=== PATIENT | female | born 1975 | race Caucasian/White ===

== ENCOUNTER 2017-02-26 17:55 | Emergency (ER) | payer SELFPAY ==
[~2017-02-26] VITALS: Ht 162.6 cm; Wt 70.3 kg
[2017-02-26] MEDS ORDERED: KLONOPIN1 MG ORAL (18:11)
[2017-02-26] MEDS ORDERED: NORCO 10-325 T1 EACH ORAL (18:11)
[2017-02-26 18:15] VITALS: BP 122/80
[2017-02-26] MEDS ORDERED: NORCO 5-325 TA1 EACH ORAL (18:37)
[2017-02-26] MEDS ORDERED: Norco 5mg/325mg tab ORAL ONE (18:45)
[2017-02-26 18:49] VITALS: BP 122/78
--- NOTE | 2017-02-26 21:01 | Emergency Room Report ---
History of Present Illness General Chief Complaint: Back Pain-No Injury Source: Patient Present Illness HPI 42-year-old female presents ED for evaluation. Patient states she is here for medication refill. Patient states she ran out of her pain medications. Has history of back pain. Denies any recent trauma. Pain is a 10 out of 10, throbbing, nonradiating. Denies any leg or motor weakness. Denies any bowel or bladder incontinence. No other aggravating relieving factors. Denies any other associated symptoms Allergies: Coded Allergies: CODEINE (Unverified Allergy, Severe, Hives, 06/20/14) IBUPROFEN (Unverified Adverse Reaction, Intermediate, Anaphylaxis, ) Patient History Past Medical History: psych hx Past Surgical History: none Pertinent Family History: none Social History: Denies: alcohol use, drug use, smoking Last Menstrual Period: One week ago Now: No Immunizations: UTD Reviewed Nursing Documentation: PMH: Agreed, PSxH: Agreed Nursing Documentation-PMH History Of Psychiatric Problem: Yes - Anxiety Review of Systems All Other Systems: negative except mentioned in HPI Physical Exam Vital Signs Date Time Temp Pulse Resp B/P Pulse Ox O2 Delivery O2 Flow Rate FiO2 02/26/17 18:07 98.4 106 18 122/80 98 Room Air Sp02 EP Interpretation: reviewed, normal General Appearance: no apparent distress, alert, GCS 15, non-toxic Head: normocephalic, atraumatic Eyes: bilateral eye PERRL, bilateral eye normal inspection ENT: hearing grossly normal, normal pharynx, no angioedema, normal voice Neck: full range of motion, supple/symm/no masses Respiratory: chest non-tender, lungs clear, normal breath sounds, speaking full sentences Cardiovascular #1: regular rate, rhythm, no edema Cardiovascular #2: 2+ carotid (R), 2+ carotid (L), 2+ radial (R), 2+ radial (L) , 2+ dorsalis pedis (R), 2+ dorsalis pedis (L) Gastrointestinal: normal bowel sounds, non tender, soft, non-distended, no guarding, no rebound Rectal: deferred Genitourinary: normal inspection, no CVA tenderness Musculoskeletal: back normal, gait/station normal, normal range of motion, non- tender Neurologic: alert, oriented x3, responsive, motor strength/tone normal, sensory intact, speech normal Psychiatric: judgement/insight normal, memory normal, mood/affect normal, no suicidal/homicidal ideation Reflexes: 3+ bicep (R), 3+ bicep (L), 3+ tricep (R), 3+ tricep (L), 3+ knee (R) , 3+ knee (L) Skin: normal color, no rash, warm/dry, well hydrated Lymphatic: no adenopathy Medical Decision Making Diagnostic Impression: Primary Impression: Chronic pain Qualified Codes: G89.29 - Other chronic pain ER Course Hospital Course 42-year-old female presents ED complaining of lower back pain. No evidence of trauma Differential diagnoses include: pyelonephritis, kidney stone, muscle strain, Lspine fracture Clinical course Patient placed on stretcher. After initial history and physical I ordered [place] for pain. Upon reassessment patient states pain has improved. I reviewed [facility] and patient has no recent prescriptions filled. However patient does have history of opioid abuse. I agreed to provide her with 3 day supply of medication Diagnosis - chronic pain Stable and discharged to home with prescription for [place]. Followup with PMD. Return to ED if symptoms recur or worsen Last Vital Signs Date Time Temp Pulse Resp B/P Pulse Ox O2 Delivery O2 Flow Rate FiO2 02/26/17 18:51 98.4 02/26/17 18:49 98 18 122/78 98 Room Air Status: improved Disposition: HOME, SELF-CARE Condition: Stable Scripts Hydrocodone Bit/Acetaminophen 5-325* (NORCO 5-325*) 1 Each Tablet 1 TAB ORAL Q6H Y for For Pain, #10 TAB 0 Refills Prov: MATILDE REYES M.D. 02/26/17 Referrals: NON PHYSICIAN (PCP) Patient Instructions: Back Pain, Adult MATILDE REYES M.D. Feb 26, 2017 21:01
== END 2017-02-26 19:20 | disposition home or self-care (01) ==
LOC: EMR 19:06
DX: G89.29 Other chronic pain (principal); Z76.0 Encounter for issue of repeat prescription; F41.9 Anxiety disorder, unspecified; M54.5 Low back pain; Z88.6 Allergy status to analgesic agent
CPT/HCPCS: 99283

== ENCOUNTER 2017-08-21 05:34 | Emergency (ER) | payer MEDICAID ==
[~2017-08-21] VITALS: Ht 162.6 cm; Wt 62.1 kg
[~2017-08-21 05:34] MED LIST: KLONOPIN1 MG ORAL; NORCO 10-325 T1 EACH ORAL; NORCO 5-325 TA1 EACH ORAL
[2017-08-21 05:45] VITALS: BP 122/83
[2017-08-21] MEDS ORDERED: DOXYCYCLINE MO100 MG ORAL (06:08)
[2017-08-21] MEDS ORDERED: KEFLEX500 MG ORAL (06:08)
[2017-08-21] MEDS ORDERED: TYLENOL EXTRA500 MG ORAL (06:09)
--- NOTE | 2017-08-21 06:10 | Emergency Room Report ---
History of Present Illness General Chief Complaint: Edema Source: Patient Present Illness HPI 42-year-old female no significant past medical history presenting with right ankle swelling for 2 days. Patient states that she has been walking a lot, trying to lose weight, suddenly noticed that her right ankle with swollen. Also with redness. Complaining of pain to the ankle. Difficulty ambulating on right foot. Denies any fall or trauma. No fever no chills. No nausea vomiting. no hx of dvt/pe Allergies: Coded Allergies: CODEINE (Unverified Allergy, Severe, Hives, 06/20/14) IBUPROFEN (Unverified Adverse Reaction, Intermediate, Anaphylaxis, ) Patient History Past Medical History: see triage record Past Surgical History: none Pertinent Family History: none Last Menstrual Period: 1 WEEK AGO Reviewed Nursing Documentation: PMH: Agreed, PSxH: Agreed Review of Systems All Other Systems: negative except mentioned in HPI Physical Exam Vital Signs Date Time Temp Pulse Resp B/P (MAP) Pulse Ox O2 Delivery O2 Flow Rate FiO2 08/21/17 05:37 97.2 98 16 122/83 100 Room Air Sp02 EP Interpretation: reviewed, normal General Appearance: normal inspection, well appearing, no apparent distress, alert, GCS 15, non-toxic Head: normocephalic, atraumatic Eyes: bilateral eye normal inspection, bilateral eye PERRL, bilateral eye EOMI ENT: normal ENT inspection, normal pharynx, normal voice, moist mucus membranes Neck: normal inspection, full range of motion, supple Respiratory: normal inspection, lungs clear, normal breath sounds, no respiratory distress, no retraction, no wheezing, speaking full sentences, chest symmetrical Cardiovascular #1: normal inspection, regular rate, rhythm, normal capillary refill Cardiovascular #2: 2+ radial (R), 2+ radial (L) Gastrointestinal: normal inspection, non tender, soft, non-distended, no guarding Musculoskeletal: other - Right ankle/distal tib-fib, edema, mild erythema, tender to palpation, limited range of motion of dorsi or plantar flexion of foot secondary to pain, slightly warm to touch, no crepitus, no calf tenderness or swelling Neurologic: normal inspection, alert, oriented x3, responsive, motor strength/ tone normal, sensory intact, speech normal Psychiatric: normal inspection, judgement/insight normal, memory normal Skin: normal inspection, normal color, no rash, warm/dry, well hydrated, normal turgor Medical Decision Making Diagnostic Impression: Primary Impression: Ankle swelling Additional Impression: Cellulitis ER Course 42-year-old female with right ankle swelling and pain DDX: Sprain/strain vs. fracture versus cellulitis versus inflammatory arthritis/gout Plan: Pain control XR ER course: ROSA bandage applied. XR neg pt still able to ambulate Disposition: Patient is to be discharged home with tylenol and a prescription for keflex/doxy Patient educated to rest, ice, and elevate extremity and to avoid vigorous activity. Strict precautions discussed with patient on when to return to the emergency room including increased redness/rapid spread of rash, increased pain/swelling of extremity, fever or chills, which could indicate severe illness. Otherwise, patient is instructed to followup with her primary care doctor or come back to the emergency room for wound recheck in 2-3 days Please note that this Emergency Department Report was dictated using [employer] technology software, occasionally this can lead to erroneous entry secondary to interpretation by the dictation equipment. Last Vital Signs Date Time Temp Pulse Resp B/P (MAP) Pulse Ox O2 Delivery O2 Flow Rate FiO2 08/21/17 05:45 97.2 98 16 122/83 100 Room Air Disposition: HOME, SELF-CARE Condition: Improved Scripts Acetaminophen* (TYLENOL EXTRA STRENGTH*) 500 Mg Tablet 500 MG ORAL Q8H Y for Prn Headache/Temp > 101, #30 TAB 0 Refills Prov: Tim Reyes M.D. 08/21/17 Doxycycline Monohydrate* (DOXYCYCLINE MONOHYDRATE*) 100 Mg Capsule 100 MG ORAL Q12H for 7 Days, #14 CAP 0 Refills Prov: Tmi Reyes M.D. 08/21/17 Cephalexin* (KEFLEX*) 500 Mg Capsule 500 MG ORAL Q6H, #28 CAP 0 Refills Prov: Tim Reyes.[email or web address] 08/21/17 Referrals: NOT CHOSEN [facility]/,REFERRING (PCP) Patient Instructions: Ankle Pain, Cellulitis Tim Reyes M.D. Aug 21, 2017 06:10
[2017-08-21 06:25] VITALS: BP 118/78
--- NOTE | 2017-08-21 10:09 | Diagnostic Imaging Report ---
Indication: Reason For Exam: PAIN Technique: 3 views of the right ankle Comparison: none Findings: No acute fractures. No dislocations. The joint spaces are preserved. There is an old screw hole in the distal fibula Impression: No acute bony trauma
== END 2017-08-21 06:25 | disposition home or self-care (01) ==
LOC: EMR 05:52
DX: M79.89 Other specified soft tissue disorders (principal); L03.115 Cellulitis of right lower limb; Z88.5 Allergy status to narcotic agent; Z88.6 Allergy status to analgesic agent
CPT/HCPCS: 99283

== ENCOUNTER 2017-12-07 14:50 | Emergency (ER) | payer MEDICAID, OTHER ==
[~2017-12-07] VITALS: Ht 160 cm; Wt 59.0 kg
[~2017-12-07 14:50] MED LIST changes: +DOXYCYCLINE MO100 MG ORAL; +KEFLEX500 MG ORAL; +TYLENOL EXTRA500 MG ORAL
[2017-12-07 14:57] VITALS: BP 111/66
[2017-12-07] MEDS ORDERED: LIDOCAINE700 M1 TP (15:18)
[2017-12-07 15:22] VITALS: BP 111/66
--- NOTE | 2017-12-07 15:23 | Emergency Room Report ---
History of Present Illness General Chief Complaint: Back Pain-No Injury Present Illness HPI Patient is a 42-year-old female who presented after continued low back pain. The patient states that she's been having pain to her low back for many years. Patient reports having multiple allergies to medications. Patient states that she had not been able to see her own primary care physician and had run out of her medications which include [place] and [place]. Patient presented for med refill.Patient denies any acute injury or change in symptomatology. Patient states that she has prior history of arthritis. Allergies: Coded Allergies: CODEINE (Unverified Allergy, Severe, Hives, 06/20/14) TRAMADOL (Verified Allergy, Unknown, 12/07/17) IBUPROFEN (Unverified Adverse Reaction, Intermediate, Anaphylaxis, ) Patient History Past Medical History: see triage record Reviewed Nursing Documentation: PMH: Agreed; PSxH: Agreed Review of Systems All Other Systems: negative except mentioned in HPI Physical Exam Vital Signs Date Time Temp Pulse Resp B/P (MAP) Pulse Ox O2 Delivery O2 Flow Rate FiO2 12/07/17 14:53 97.8 85 20 111/66 99 Room Air 97.9 General Appearance: well appearing, no apparent distress, alert, GCS 15 Head: normocephalic, atraumatic ENT: hearing grossly normal, normal voice Neck: full range of motion, supple Respiratory: chest non-tender, lungs clear, normal breath sounds, no respiratory distress, speaking full sentences Cardiovascular #1: normal peripheral pulses, regular rate, rhythm, no edema, no gallop Gastrointestinal: normal inspection, normal bowel sounds, non tender, soft Musculoskeletal: no calf tenderness Neurologic: normal gait Psychiatric: mood/affect normal Skin: no rash Medical Decision Making Diagnostic Impression: Primary Impression: Chronic pain ER Course Patient presented for back pain. Differential diagnosis included but was not limited to herniated disc, cauda equina syndrome, abdominal aortic aneurysm, perforated ulcer, spinal epidural abscess, spinal stenosis, lumbar fracture, metastatic lesion, pyelonephritis. The patient appears to have chronic pain. There does not appear to be any acute change. The patient was advised that she would not be given refills of narcotic pain medication and that she would need to seek primary care for this. The patient was advised that long-term use of narcotics would not be advisable given her chronic pain issue. Patient is advised to return if any worsening condition or if any changes in status that are concerning. This report is dictated with [employer] associate professor of physics software which may occasionally lead to discrepancies related to use of this software. Last Vital Signs Date Time Temp Pulse Resp B/P (MAP) Pulse Ox O2 Delivery O2 Flow Rate FiO2 12/07/17 14:57 97.9 80 20 111/66 99 Room Air 97.9 Status: unchanged Disposition: HOME, SELF-CARE Condition: Stable Scripts Lidocaine (Lidocaine) 1 Each Adh..patch 700 MG TP DAILY, #30 PATCH Prov: Etienne Sargent MD 12/07/17 Patient Instructions: Back Pain, Adult Etienne Sargent MD December 07, 2017 15:23
== END 2017-12-07 15:29 | disposition home or self-care (01) ==
LOC: EMR 15:17
DX: M54.5 Low back pain (principal); G89.29 Other chronic pain; Z88.5 Allergy status to narcotic agent; Z88.6 Allergy status to analgesic agent
CPT/HCPCS: 99283

== ENCOUNTER 2018-03-22 21:56 | Emergency (ER) | payer MEDICAID ==
[~2018-03-22] VITALS: Ht 162.6 cm; Wt 60.8 kg
[~2018-03-22 21:56] MED LIST changes: +LIDOCAINE700 M1 TP
[2018-03-22 22:00] VITALS: BP 124/81
--- NOTE | 2018-03-22 22:30 | Emergency Room Report ---
History of Present Illness General Chief Complaint: General Complaint Source: Patient, Medical Record Present Illness HPI Is a 43-year-old female with a history of anxiety. She also has history chronic pain. Initially she presents with chief complaint of feet pain. She said she been walking a lot. She has a blister to the right side of the foot. Here she also complaining of anxiety and the Ativan. She has not been on it for a couple months. Denies any trauma. No fever chills but no nausea no vomiting. Pain is 10 out of 10. No suicidal thought homicidal thought. Allergies: Coded Allergies: CODEINE (Unverified Allergy, Severe, Hives, 06/20/14) TRAMADOL (Verified Allergy, Unknown, 12/07/17) IBUPROFEN (Unverified Adverse Reaction, Intermediate, Anaphylaxis, ) Patient History Past Medical History: see triage record, old chart reviewed, psych hx Past Surgical History: none Pertinent Family History: none Social History: Reports: smoking Last Menstrual Period: 1 week ago Now: No Immunizations: other Reviewed Nursing Documentation: PMH: Agreed; PSxH: Agreed Review of Systems Eye: Denies: eye pain, blurred vision ENT: Denies: ear pain, nose congestion, throat swelling Respiratory: Denies: cough, shortness of breath Cardiovascular: Denies: chest pain, palpitations Gastrointestinal: Denies: abdominal pain, diarrhea, nausea, vomiting Musculoskeletal: Reports: muscle pain; Denies: back pain, joint pain Skin: Denies: rash Neurological: Denies: headache, numbness Endocrine: Denies: increased thirst, increased urine Hematologic/Lymphatic: Denies: easy bruising All Other Systems: negative except mentioned in HPI Physical Exam Vital Signs Date Time Temp Pulse Resp B/P (MAP) Pulse Ox O2 Delivery O2 Flow Rate FiO2 03/22/18 22:00 98.6 110 16 124/81 95 Room Air 98.6 vitals with tachycardia Sp02 EP Interpretation: reviewed, normal General Appearance: well appearing, no apparent distress, alert Head: normocephalic, atraumatic Eyes: bilateral eye PERRL, bilateral eye EOMI ENT: hearing grossly normal, normal pharynx Neck: full range of motion, supple, no meningismus Respiratory: chest non-tender, lungs clear, normal breath sounds Cardiovascular #1: regular rate, rhythm - Heart rate 90, no murmur Gastrointestinal: normal bowel sounds, non tender, no mass, no organomegaly, no bruit, non-distended Musculoskeletal: back normal, gait/station normal, normal range of motion, other - 1 cm skin abrasion to the lateral aspect of the right foot. No infection. Neurologic: alert, oriented x3 Psychiatric: mood/affect normal Skin: warm/dry Medical Decision Making Diagnostic Impression: Primary Impression: Chronic pain Qualified Codes: G89.4 - Chronic pain syndrome Additional Impressions: Anxiety Pain in both feet ER Course Patient presents with pain to her feet and chronic pain. She is allergic to ibuprofen. We'll put her on Tylenol. No evidence of any trauma. She is resting comfortably asking for food and drink area I see no evidence of anxiety. We'll discharge home. On the [employer] system she had recent prescription for hydrocodone in February. No recent prescription for Ativan. We' ll discharge home. Last Vital Signs Date Time Temp Pulse Resp B/P (MAP) Pulse Ox O2 Delivery O2 Flow Rate FiO2 03/22/18 22:00 98.6 110 16 124/81 95 Room Air 98.6 Status: unchanged Disposition: HOME, SELF-CARE Condition: Stable Additional Instructions: Follow-up with your doctor in 7 days. May take Tylenol for pain. Return if symptom worsen. ELEN MCNAMARA M.D. Mar 22, 2018 22:30
== END 2018-03-22 22:35 | disposition home or self-care (01) ==
LOC: EMR 22:15
DX: M79.672 Pain in left foot (principal); M79.671 Pain in right foot; G89.4 Chronic pain syndrome; F41.9 Anxiety disorder, unspecified; F17.200 Nicotine dependence, unspecified, uncomplicated; Z88.8 Allergy status to other drugs, medicaments and biological substances; Z88.5 Allergy status to narcotic agent; Z88.6 Allergy status to analgesic agent
CPT/HCPCS: 99282

== ENCOUNTER 2018-07-06 01:07 | Emergency (ER) | payer MEDICAID, OTHER ==
[~2018-07-06] VITALS: Ht 162.6 cm; Wt 59.0 kg
[2018-07-06] MEDS ORDERED: ATIVAN4 MG/1 ML IJ (01:30)
[2018-07-06] MEDS ORDERED: NORCO 5-325 TA1 EACH ORAL (01:30)
[2018-07-06 01:33] VITALS: BP 118/82
[2018-07-06] MEDS ORDERED: Acetaminophen 500mg (ES) tab ORAL ONE (01:45)
[2018-07-06] MEDS ORDERED: ATIVAN1 MG ORAL (01:47)
[2018-07-06] MEDS ORDERED: TYLENOL EXTRA500 MG ORAL (01:47)
[2018-07-06 01:58] VITALS: BP 114/81
--- NOTE | 2018-07-06 05:20 | Emergency Room Report ---
History of Present Illness General Chief Complaint: Pain Source: Patient Present Illness HPI 43-year-old female presents ED for evaluation. Patient walked in stating that she is having pain in her feet pain in her back and neck. Denies any recent injury. States she's had this pain for many years now. Throbbing, 10 out of 10 , nonradiating. States she also feels very anxious. Takes Ativan. Denies SI or HI. Denies hearing voices. No other aggravating relieving factors. Denies any other associated symptoms Allergies: Coded Allergies: CODEINE (Unverified Allergy, Severe, Hives, 06/20/14) TRAMADOL (Verified Allergy, Unknown, 12/07/17) IBUPROFEN (Unverified Adverse Reaction, Intermediate, Anaphylaxis, ) Patient History Past Medical History: none Past Surgical History: none Pertinent Family History: none Social History: Denies: smoking, alcohol use, drug use Now: No Immunizations: UTD Reviewed Nursing Documentation: PMH: Agreed; PSxH: Agreed Nursing Documentation-PMH Past Medical History: No Stated History Review of Systems All Other Systems: negative except mentioned in HPI Physical Exam Vital Signs Date Time Temp Pulse Resp B/P (MAP) Pulse Ox O2 Delivery O2 Flow Rate FiO2 07/06/18 01:19 97.2 76 18 117/80 99 Room Air Sp02 EP Interpretation: reviewed, normal General Appearance: no apparent distress, alert, GCS 15, non-toxic Head: normocephalic, atraumatic Eyes: bilateral eye normal inspection, bilateral eye PERRL ENT: hearing grossly normal, normal pharynx, no angioedema, normal voice Neck: full range of motion, no bony tend, supple/symm/no masses, tender lateral Respiratory: chest non-tender, lungs clear, normal breath sounds, speaking full sentences Cardiovascular #1: regular rate, rhythm, no edema Cardiovascular #2: 2+ carotid (R), 2+ carotid (L), 2+ radial (R), 2+ radial (L) , 2+ dorsalis pedis (R), 2+ dorsalis pedis (L) Gastrointestinal: normal bowel sounds, non tender, soft, non-distended, no guarding, no rebound Rectal: deferred Genitourinary: normal inspection, no CVA tenderness Musculoskeletal: back normal, gait/station normal, normal range of motion, tender - paraspinal lumbar tenderness Neurologic: alert, oriented x3, responsive, motor strength/tone normal, sensory intact, speech normal Psychiatric: judgement/insight normal, memory normal, mood/affect normal, no suicidal/homicidal ideation Reflexes: 3+ bicep (R), 3+ bicep (L), 3+ tricep (R), 3+ tricep (L), 3+ knee (R) , 3+ knee (L) Skin: normal color, no rash, warm/dry, well hydrated Lymphatic: no adenopathy Medical Decision Making Diagnostic Impression: Primary Impression: Anxiety Additional Impression: Chronic pain Qualified Codes: G89.29 - Other chronic pain ER Course Hospital Course 43-year-old female presents ED complaining of bilateral foot pain, neck and back pain. no trauma Differential diagnoses include: pyelonephritis, kidney stone, muscle strain, Lspine fracture Clinical course Patient placed on stretcher. After initial history and physical I ordered tylenol for pain. I reviewed EMR. Patient has been here multiple times for similar presentation. Upon reassessment patient states pain has improved. Patient is safe for discharge or close outpatient follow-up. Agreed to provide her with 3 day supply of Ativan Diagnosis - anxiety, chronic pain Stable and discharged to home with prescription for ativan. Followup with PMD. Return to ED if symptoms recur or worsen Last Vital Signs Date Time Temp Pulse Resp B/P (MAP) Pulse Ox O2 Delivery O2 Flow Rate FiO2 07/06/18 02:13 97.1 07/06/18 01:58 76 18 114/81 99 Room Air Status: improved Disposition: HOME, SELF-CARE Condition: Stable Scripts Lorazepam* (ATIVAN*) 1 Mg Tablet 1 MG ORAL THREE TIMES A DAY for 3 Days, TAB Prov: Jimmie Zambrano MD 07/06/18 Acetaminophen* (TYLENOL EXTRA STRENGTH*) 500 Mg Tablet 500 MG ORAL Q8H PRN for Prn Headache/Temp > 101, #30 TAB 0 Refills Prov: Jimmie Zambrano MD 07/06/18 Referrals: [facility],REFERRING (PCP) Patient Instructions: Panic Attacks, [id number] Jimmie Zambrano MD Jul 06, 2018 05:20
== END 2018-07-06 02:30 | disposition home or self-care (01) ==
LOC: EMR 02:26
DX: F41.9 Anxiety disorder, unspecified (principal); G89.29 Other chronic pain; M79.672 Pain in left foot; M79.671 Pain in right foot; M54.2 Cervicalgia; M54.9 Dorsalgia, unspecified; Z88.6 Allergy status to analgesic agent; Z88.5 Allergy status to narcotic agent
CPT/HCPCS: 99283

== ENCOUNTER 2018-11-05 18:47 | Inpatient (IN) | payer SELFPAY ==
[~2018-11-05] VITALS: Ht 167.6 cm; Wt 74.9 kg
[~2018-11-05 18:47] MED LIST changes: +ATIVAN1 MG ORAL; +ATIVAN4 MG/1 ML IJ
[2018-11-05] MEDS ORDERED: UNOBMED (18:48)
--- NOTE | 2018-11-05 18:53 | NUR ---
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 Per EMS, pt didn't pay the bill and [employer] called to get her out from the restaurant. Pt is uncooperative and refused to respond to questions asked by police. Pt reported to also fake her seizure. Pt is sleeping at this time and still uncooperative. No respiratory distress.
--- NOTE | 2018-11-05 19:00 | Emergency Room Report ---
History of Present Illness General Chief Complaint: Behavioral Complaint Source: EMS (Ashley Bobo DO) Present Illness HPI Patient was brought in by paramedics It was reported that the patient was at [employer] Apparently was trying to leave without pain After she was taken outside and Police Department arrived patient had an episode where she became unresponsive Paramedics report that they feel the patient was malingering Here the patient response to our physical stimuli however does not open her eyes is nonverbal with us History of present illness remains limited (Ashley Bobo DO) Allergies: Coded Allergies: UNABLE TO ASSESS (Unverified , 11/05/18) Patient History Limited by: medical condition Past Medical History: see triage record Pertinent Family History: none Reviewed Nursing Documentation: PMH: Agreed; PSxH: Agreed (Ashley Bobo DO) Nursing Documentation-PMH Past Medical History Deferred: Pt Cognitively Impaired (Ashley Bobo DO) Review of Systems All Other Systems: limited - Other than the ones mentioned in the history of present illness all others are reviewed however they do stay limited due to the patient's mental status (Ashley Bobo DO) Physical Exam Vital Signs Date Time Temp Pulse Resp B/P (MAP) Pulse Ox O2 Delivery O2 Flow Rate FiO2 11/05/18 18:43 97.7 80 16 128/83 100 Room Air Sp02 EP Interpretation: reviewed, normal General Appearance: no apparent distress Head: normocephalic, atraumatic Eyes: bilateral eye PERRL, bilateral eye EOMI ENT: normal pharynx Neck: supple Respiratory: lungs clear, no respiratory distress, no retraction Cardiovascular #1: regular rate, rhythm Gastrointestinal: non tender, soft Musculoskeletal: other - Patient withdraws equally from physical stimuli, however does not following commands Neurologic: other - Pupils are equally reactive, patient however is nonverbal with us, responsive to physical stimuli only Skin: other - Somewhat disheveled in appearance Lymphatic: no adenopathy (Ashley Bobo DO) Medical Decision Making Diagnostic Impression: Primary Impression: Delirium Additional Impression: Substance abuse ER Course Please see above note. Patient VS stable and afebrile. Eyes closed, but surreptitiously looking when not aware of examiner. Labs reviewed and CK ordered and is normal. + Tox for amphetamine and THC. Patient unable to be discharged. She collapsed twice at attempts to discharge. financial services consultant not available. Not eating, speaking. IV hydration started. Admit med. Dr. Rojas. Contact Dr. Neri for consultation. financial services consultant consult had been ordered. Laboratory Tests Test 11/05/18 20:20 11/05/18 20:45 11/06/18 14:55 White Blood Count 7.8 K/UL (4.8-10.8) Red Blood Count 4.10 M/UL (4.20-5.40) L Hemoglobin 11.5 G/DL (12.0-16.0) L Hematocrit 34.9 % (37.0-47.0) L Mean Corpuscular Volume 85 FL (80-99) Mean Corpuscular Hemoglobin 28.0 PG (27.0-31.0) Mean Corpuscular Hemoglobin Concent 32.9 G/DL (32.0-36.0) Red Cell Distribution Width 14.2 % (11.6-14.8) Platelet Count 222 K/UL (150-450) Mean Platelet Volume 8.1 FL (6.5-10.1) Neutrophils (%) (Auto) 59.4 % (45.0-75.0) Lymphocytes (%) (Auto) 26.5 % (20.0-45.0) Monocytes (%) (Auto) 11.5 % (1.0-10.0) H Eosinophils (%) (Auto) 1.7 % (0.0-3.0) Basophils (%) (Auto) 0.9 % (0.0-2.0) Sodium Level 143 MMOL/L (136-145) Potassium Level 3.2 MMOL/L (3.5-5.1) L Chloride Level 105 MMOL/L (98-107) Carbon Dioxide Level 31 MMOL/L (21-32) Anion Gap 7 mmol/L (5-15) Blood Urea Nitrogen 21 mg/dL (7-18) H Creatinine 0.8 MG/DL (0.55-1.30) Estimate Glomerular Filtration Rate > 60 mL/min (>60) Glucose Level 114 MG/DL (74-106) H Calcium Level 9.1 MG/DL (8.5-10.1) Serum Alcohol < 3 mg/dL Urine Opiates Screen Negative (NEGATIVE) Urine Barbiturates Screen Negative (NEGATIVE) Phencyclidine (PCP) Screen Negative (NEGATIVE) Urine Amphetamines Screen Positive (NEGATIVE) H Urine Benzodiazepines Screen Negative (NEGATIVE) Urine Cocaine Screen Negative (NEGATIVE) Urine Marijuana (THC) Screen Positive (NEGATIVE) H Total Creatine Kinase 113 U/L (26-308) (Anselmo Kelly MD) CT/MRI/US Diagnostic Results CT/MRI/US Diagnostic Results : Imaging Test Ordered: head Impression Evaluation limited due to suboptimal positioning and patient motion. Within these limitations: No evidence of acute intracranial hemorrhage, mass effect or CT evidence of acute territorial infarct. MRI may be obtained for more sensitive evaluation as clinically indicated. Mild nonspecific periventricular hypoattenuation suggestive of chronic ischemic microvascular changes. Mild paranasal sinus disease. (Anselmo Kelly MD) Last Vital Signs Date Time Temp Pulse Resp B/P (MAP) Pulse Ox O2 Delivery O2 Flow Rate FiO2 11/05/18 18:50 80 16 Room Air 11/05/18 18:43 97.7 128/83 100 (Ashley Bobo DO) Last Vital Signs Date Time Temp Pulse Resp B/P (MAP) Pulse Ox O2 Delivery O2 Flow Rate FiO2 11/07/18 00:00 98.9 70 19 109/62 (78) 98 11/06/18 22:53 Room Air Status: unchanged (Anselmo Kelly MD) Disposition: ADMITTED INPATIENT Condition: Serious Ashley Bobo DO Nov 05, 2018 19:00 Anselmo Kelly MD Nov 06, 2018 14:58
--- NOTE | 2018-11-05 19:10 | NUR ---
ED Nurse Note: Pt taken to CT.
--- NOTE | 2018-11-05 19:26 | NUR ---
HAND-OFF: Report given to Francisca MCMAHAN.
[2018-11-05] MEDS ORDERED: Naloxone 1mg/ml 2ml IM ONE ×2 (20:15→21:00)
[2018-11-05 20:32] LABS: BASOPHILS % (AUTO) 0.9 % (0.0-2.0); EOSINOPHILS % (AUTO) 1.7 % (0.0-3.0); HEMATOCRIT 34.9 % (37.0-47.0); HEMOGLOBIN 11.5 G/DL (12.0-16.0); LYMPHOCYTES % (AUTO) 26.5 % (20.0-45.0); MEAN CORPUSCULAR VOLUME 85 FL (80-99); MONOCYTES % (AUTO) 11.5 % (1.0-10.0); NEUTROPHILS % (AUTO) 59.4 % (45.0-75.0); PLATELET COUNT 222 K/UL (150-450); RED CELL DISTRIBUTION WIDTH 14.2 % (11.6-14.8); WHITE BLOOD COUNT 7.8 K/UL (4.8-10.8)
--- NOTE | 2018-11-05 20:36 | NUR ---
ER Nurse Note: Pt back from CT; awaiting results. Pt asleep, unable to assess baseline. Blood was sent to lab per ERMD orders. Pt was given narcan; no reaction yet. Pt VSS, no signs of distress. Belongings taken and put in locker 3. All safety measures met; will continue to montior. Addendum: 11/05/18 at 2112 by [email or web address] ER Nurse Note: Belongings is in locker 2.
[2018-11-05 20:52] LABS: ANION GAP 7 mmol/L (5-15); BLOOD UREA NITROGEN 21 mg/dL (7-18); CALCIUM 9.1 MG/DL (8.5-10.1); CARBON DIOXIDE 31 MMOL/L (21-32); CHLORIDE 105 MMOL/L (98-107); CREATININE 0.8 MG/DL (0.55-1.30); POTASSIUM 3.2 MMOL/L (3.5-5.1); SODIUM 143 MMOL/L (136-145)
[2018-11-05 21:13] VITALS: BP 102/60
--- NOTE | 2018-11-05 21:14 | NUR ---
ER Nurse Note: Narcan given; pt reacts to pain and stimuli but does not awake up. Pupils round and reactive to light. ERMD aware and assessed at bedside. Pt became awake. Narcan ordered again but was given verbal order to hold untill nedded or if needed again. Pt calm, asleep, VSS, no signs of distress. Belongings in locker 2. All safety measures met; will continue to montior.
--- NOTE | 2018-11-05 21:31 | NUR ---
ER Nurse Note: Narcan given per ERMD orders; will await for reaction.
[2018-11-06] VITALS (9 sets, daily range): BP systolic 104–130; BP diastolic 60–83
--- NOTE | 2018-11-06 01:20 | NUR ---
ER Nurse Note: Pt asleep, unwilling to answer questions and open eyes. Pt responds to deep pain. Pending discharge in morning. All safety measures met; will continue to montior.
[2018-11-06] MEDS ORDERED: Ammonia Inhalant 0.33mL 1 Amp INH ONE ×2 (03:51→04:52)
--- NOTE | 2018-11-06 04:45 | NUR ---
ED Nurse Note: Pt continues to refuse to give name; lays in [place] with eyes closed. Refuses to answer questions regarding food, fluids, shelters, geriatric social work professor. Pt is unkept. At one point patient was out of bed, screaming at this nurse, "You leave me lying here and I have to go to the bathroom!" "And I just want to sleep." Pt ambulated without difficulty to the bathroom.
--- NOTE | 2018-11-06 07:05 | NUR ---
ER Nurse Note: Report given to MARJ Yang for continuity of care. Pt refuses to give name. Pt is calm in bed. Pt is ambulatory, no sign of distress. VSS. Awaiting socal work.
--- NOTE | 2018-11-06 07:33 | NUR ---
ED Nurse Note: Received pt in bed sleeping. tried to wake her up but pt moves and turns but no opening eyes or verbally respond. vital signs stable as documented. Blood sugar 91 mg/dl.
--- NOTE | 2018-11-06 07:47 | NUR ---
ED Nurse Note: waiting for the social media analyst to see the pt for proper discharge.
--- NOTE | 2018-11-06 09:16 | Diagnostic Imaging Report ---
Indication: Mental status Technique: Continuous helical CT scanning of the head was performed utilizing automated exposure control without intravenous contrast material. Axial and coronal reconstructions were obtained. Comparison: None CT dose: Total DLP 2529.2 mGycm; CTDI vol 70.38,70.38 mGy. Note that scan had to be repeated due to significant patient motion. Findings: Indication is limited due to suboptimal positioning and patient motion. Within these limitations: There is no acute intracranial hemorrhage, mass effect or definite CT evidence to suggest acute territorial infarct. The ventricles, cisterns and sulci are within normal limits. Mild periventricular hypoattenuation is seen, a nonspecific finding. Mastoid air cells are clear. Mild mucosal thickening noted in the paranasal sinuses. No acute skull fracture identified. Orbits grossly unremarkable. IMPRESSION: Evaluation limited due to suboptimal positioning and patient motion. Within these limitations: No evidence of acute intracranial hemorrhage, mass effect or CT evidence of acute territorial infarct. MRI may be obtained for more sensitive evaluation as clinically indicated. Mild nonspecific periventricular hypoattenuation suggestive of chronic ischemic microvascular changes. Mild paranasal sinus disease. The CT scanner at [facility] is accredited by the [employer] and the scans are performed using protocols designed to limit radiation exposure to as low as reasonably achievable to attain images of sufficient resolution adequate for diagnostic evaluation.
--- NOTE | 2018-11-06 11:45 | NUR ---
ED Nurse Note: have tried to wake pt up multiple times. not waking up. vital signs stable as documented.
--- NOTE | 2018-11-06 12:03 | NUR ---
no social security assessor in the hospital today patient refuse to talk ambulated to the front door then lie down in the floor placed back in the room
--- NOTE | 2018-11-06 13:00 | NUR ---
pmrt has been called to evaluate the patient but theycanot interview her due to patient is non verbal at this time call them back when she start talking
[2018-11-06 15:13] LABS: CREATINE KINASE 113 U/L (26-308)
--- NOTE | 2018-11-06 16:34 | NUR ---
ED Nurse Note: pt was undressed and put in gown. skin soiled but no open wound or pressure ulcer noted.
[2018-11-06] MEDS ORDERED: LORazepam Inj 2mg/ml 1ml IV PRN (18:00)
[2018-11-06] MEDS ORDERED: Morphine Sulfate 2mg/ml Inj(IV/IM USE ONLY) IVP PRN (18:00)
[2018-11-06] MEDS ORDERED: D5 1/2NS 1,000 ML IV SCH (18:00)
--- NOTE | 2018-11-06 19:00 | NUR ---
HAND-OFF: Report given to MARJ Renae. Pt will be transfer to MS unit. waiting for the room to be available. Beloing list and homeless dillon cog done and placed in chart.
--- NOTE | 2018-11-06 19:42 | NUR ---
ED Nurse Note: TELEPHONE REPORT GIVEN TO MARJ PEREZ FROM 3E. PT REFUSED MRSA, VRE, CRE SWAB. REMAINS QUIET AND OPENES EYES BUT DOES NOT ANSWER ANY QUESTIONS. VSS.
--- NOTE | 2018-11-06 20:10 | NUR ---
TRANSFER TO FLOOR: Per ERMD, pt is ok to go up without antibiotic at this time. Patient transferred to #[id number] as ordered via rmalorie with Teofilo contact lens technician . Report given to MARJ Alcocer. Belongings and meds given to pt. No s/s of distress.
--- NOTE | 2018-11-06 20:56 | NUR ---
NURSE NOTES: Received report from JACKIE Arrington RN. Patient was transferred to 3E Med-Surg unit from ER via draw sheet method, 2 staff member assist without incident. No signs of acute distress noted. Patient shakes head when asked if she's in pain. AOx1-2; unable to verbalize needs at this time. Checked IV site, line, and IV rate; patent and running. No erythema, bleeding, or infiltration noted. Belongings list checked with transferring RN. Bed at lowest position, brakes on, siderails up x3. Call light within reach. Will continue to monitor.
[2018-11-06] MEDS: Heparin 5000 units/ml inj SUBQ SCH (22:11)
[2018-11-07] VITALS: BP 109/62
[2018-11-07 04:00] VITALS: BP 112/65
[2018-11-07 06:39] LABS: BASOPHILS % (AUTO) 1.2 % (0.0-2.0); EOSINOPHILS % (AUTO) 2.6 % (0.0-3.0); HEMATOCRIT 34.5 % (37.0-47.0); HEMOGLOBIN 11.2 G/DL (12.0-16.0); LYMPHOCYTES % (AUTO) 48.9 % (20.0-45.0); MEAN CORPUSCULAR VOLUME 88 FL (80-99); MONOCYTES % (AUTO) 8.4 % (1.0-10.0); NEUTROPHILS % (AUTO) 38.9 % (45.0-75.0); PLATELET COUNT 206 K/UL (150-450); RED BLOOD COUNT 3.94 M/UL (4.20-5.40); RED CELL DISTRIBUTION WIDTH 14.6 % (11.6-14.8); WHITE BLOOD COUNT 5.1 K/UL (4.8-10.8)
[2018-11-07 06:44] LABS: ALANINE AMINOTRANSFERASE 18 U/L (12-78); ALBUMIN 2.7 G/DL (3.4-5.0); ALBUMIN/GLOBULIN RATIO 0.8 (1.0-2.7); ALKALINE PHOSPHATASE 42 U/L (46-116); ANION GAP 8 mmol/L (5-15); ASPARTATE AMINO TRANSFERASE 11 U/L (15-37); BILIRUBIN,TOTAL 0.5 MG/DL (0.2-1.0); BLOOD UREA NITROGEN 8 mg/dL (7-18); CALCIUM 8.3 MG/DL (8.5-10.1); CARBON DIOXIDE 28 MMOL/L (21-32); CHLORIDE 107 MMOL/L (98-107); CREATININE 0.5 MG/DL (0.55-1.30); SODIUM 143 MMOL/L (136-145)
[2018-11-07 06:53] LABS: POTASSIUM 2.7 MMOL/L (3.5-5.1)
--- NOTE | 2018-11-07 06:56 | NUR ---
NURSE NOTES: Called Dr. Dinh regarding patient's 2.7 potassium level. Awaiting callback.
--- NOTE | 2018-11-07 07:14 | NUR ---
NURSE NOTES: Received new order from Dr. Dinh for 40 mEQ KCl PO x2. Noted and carried out.
--- NOTE | 2018-11-07 07:15 | NUR ---
NURSE NOTES: Patient is in bed asleep. Patient is arousable to verbal stimuli. Patient is nonverbal. Stable with no s/s acute distress. Patient does not have any facial grimacing. Patient appears comfortable. Patient encouraged to use call light for assistance. All safety measures provided at this time. Patient is in bed in locked and lowest position with call light within reach. Will continue to monitor.
--- NOTE | 2018-11-07 07:25 | NUR ---
HAND-OFF: Report given to MARJ Wayne. Patient is asleep lying semi-gallegos's; resting comfortably. In stable condition.
--- NOTE | 2018-11-07 07:53 | NUR ---
NURSE NOTES: Called Dr. Dinh regarding a possible sitter order for patient. Awaiting callback.
[2018-11-07 08:00] VITALS: BP 115/72
--- NOTE | 2018-11-07 08:24 | NUR ---
Social Work This Sw received a consult due to substance abuse, homelessness. This Sw met with patient who is unresponsive due to possible detox; SW to follow when more alert/oriented (name unknown at this time).
[2018-11-07] MEDS: Heparin 5000 units/ml inj SUBQ SCH ×2 (08:36→09:00)
--- NOTE | 2018-11-07 09:00 | NUR ---
NURSE NOTES: Patient refused all morning medication. Patient refused Kdur. RN informed patient of all dangers of not taking medication, patient did not respond. MD aware. No new orders.
[2018-11-07 12:00] VITALS: BP 115/72
--- NOTE | 2018-11-07 12:51 | Consultation ---
History of Present Illness General Date patient seen: Nov 07, 2018 Chief Complaint: Behavioral Complaint Present Illness HPI 68 year old female brought in by paramedics because sitting on the street with closed eyes. Apparently she was in a restaurant and she refused to pay and leave the restaurant. She was escorted out. She sat there and closed her eyes and just sat there. She was evaluated in ER. Her blood was positive for Amphetamine and THC. Allergies: Coded Allergies: UNABLE TO ASSESS (Unverified , 11/05/18) Medication History Miscellaneous Medications Unable to Obtain Medications (Unable To Obtain Meds), (Reported) Patient History Healthcare decision maker Resuscitation status Full Code Advanced Directive on File Past Medical/Surgical History Past Medical/Surgical History: (1) Unknown family medical history Review of Systems All Other Systems: negative except mentioned in HPI Physical Exam General Appearance: WD/WN Lines, tubes and drains: peripheral HEENT: normocephalic Neck: non-tender Respiratory/Chest: chest wall non-tender, lungs clear Last 24 Hour Vital Signs Date Time Temp Pulse Resp B/P (MAP) Pulse Ox O2 Delivery O2 Flow Rate FiO2 11/07/18 09:00 Room Air 11/07/18 08:00 98.0 66 19 115/72 (86) 95 11/07/18 04:00 98.8 74 20 112/65 (81) 97 11/07/18 00:00 98.9 70 19 109/62 (78) 98 11/06/18 22:53 Room Air 11/06/18 20:10 98.1 81 14 122/75 99 Room Air 11/06/18 18:00 98.1 81 14 122/75 99 Room Air 11/06/18 15:49 98.1 85 14 121/77 99 Room Air 11/06/18 14:08 98.0 75 14 122/78 99 Room Air Intake and Output 11/06/18 11/07/18 19:00 07:00 Intake Total 1000 ml 900 ml Balance 1000 ml 900 ml Intake Oral 0 ml IV Total 1000 ml 900 ml # Voids 1 Laboratory Tests Test 11/06/18 14:55 11/07/18 05:30 Total Creatine Kinase 113 U/L (26-308) White Blood Count 5.1 K/UL (4.8-10.8) Red Blood Count 3.94 M/UL (4.20-5.40) L Hemoglobin 11.2 G/DL (12.0-16.0) L Hematocrit 34.5 % (37.0-47.0) L Mean Corpuscular Volume 88 FL (80-99) Mean Corpuscular Hemoglobin 28.3 PG (27.0-31.0) Mean Corpuscular Hemoglobin Concent 32.3 G/DL (32.0-36.0) Red Cell Distribution Width 14.6 % (11.6-14.8) Platelet Count 206 K/UL (150-450) Mean Platelet Volume 8.7 FL (6.5-10.1) Neutrophils (%) (Auto) 38.9 % (45.0-75.0) L Lymphocytes (%) (Auto) 48.9 % (20.0-45.0) H Monocytes (%) (Auto) 8.4 % (1.0-10.0) Eosinophils (%) (Auto) 2.6 % (0.0-3.0) Basophils (%) (Auto) 1.2 % (0.0-2.0) Sodium Level 143 MMOL/L (136-145) Potassium Level 2.7 MMOL/L (3.5-5.1) *L Chloride Level 107 MMOL/L (98-107) Carbon Dioxide Level 28 MMOL/L (21-32) Anion Gap 8 mmol/L (5-15) Blood Urea Nitrogen 8 mg/dL (7-18) Creatinine 0.5 MG/DL (0.55-1.30) L Estimat Glomerular Filtration Rate > 60 mL/min (>60) Glucose Level 88 MG/DL (74-106) Calcium Level 8.3 MG/DL (8.5-10.1) L Total Bilirubin 0.5 MG/DL (0.2-1.0) Aspartate Amino Transf (AST/SGOT) 11 U/L (15-37) L Alanine Aminotransferase (ALT/SGPT) 18 U/L (12-78) Alkaline Phosphatase 42 U/L (46-116) L Total Protein 6.3 G/DL (6.4-8.2) L Albumin 2.7 G/DL (3.4-5.0) L Globulin 3.6 g/dL Albumin/Globulin Ratio 0.8 (1.0-2.7) L Height (Feet): 5 Height (Inches): 6.00 Weight (Pounds): 160 Medications Current Medications Medications (Trade) Dose Ordered Sig/Wilmar Route PRN Reason Start Time Stop Time Status Last Admin Dose Admin Dextrose (Dextrose 50%) 25 ml Q30M PRN IV Hypoglycemia 11/06/18 18:00 12/06/18 17:59 Dextrose (Dextrose 50%) 50 ml Q30MIN PRN IV Hypoglycemia 11/06/18 18:00 12/06/18 17:59 Dextrose/ Electrolytes 1,000 ml @ 50 mls/hr Q20H IV 11/07/18 14:00 12/07/18 13:59 Lorazepam (Ativan 2mg/ml 1ml) 0.5 mg Q4H PRN IV For Anxiety 11/06/18 18:00 11/13/18 17:59 Assessment/Plan Problem List: (1) Antisocial behavior SNOMED: 00151091 (2) Substance abuse ICD Codes: F19.10 - Other psychoactive substance abuse, uncomplicated SNOMED: 86513864 Diagnosis [place] I: IV fluids symptomatic treatment social service consult Gita Dinh MD Nov 07, 2018 12:51
--- NOTE | 2018-11-07 13:40 | NUR ---
CASE MANAGEMENT:REVIEW 68 YR OLD FEMALE BIBA FROM [employer] CC: STOPPED TALKING AFTER EATING AT [email or web address] SI: DELIRIUM. SUBSTANCE ABUSE 97.7 80 16 107/83 100% ON RA H/H-11.5/34.9 K-3.2 URINE(+) AMPHETAMINES AND THC IS: NARCAN IM X2 1L NS BOLUS CT HEAD : TO MED/SURG 3 EAST PLAN: NEURO CHECKS Q4HRS
[2018-11-07] MEDS: D5 1/2NS w/KCl 40meq 1000ml 1,000 ML IV SCH (14:36)
--- NOTE | 2018-11-07 15:18 | NUR ---
HAND-OFF: Report given to Morgan MCMAHAN. Patient is stable.
--- NOTE | 2018-11-07 15:20 | NUR ---
NURSE NOTES: Received report from MARJ Wayne. Rounding done with outgoing nurse. Patient is asleep. IV fluid running. Bed in lowest position, call light within reach. Will continue to monitor.
--- NOTE | 2018-11-07 15:40 | NUR ---
Social Work This Sw made an attempt to speak with patient (in South Korean and Hungarian); patient had her eyes open, more alert at this time. However, patient is refusing to speak with this SW (or anyone) at this time, closing her eyes (nonverbal).
[2018-11-07 16:00] VITALS: BP 103/58
--- NOTE | 2018-11-07 19:26 | NUR ---
HAND-OFF: Report given to MARJ Richardson. Patient is stable.
[2018-11-07 20:00] VITALS: BP 117/75
--- NOTE | 2018-11-07 20:02 | NUR ---
NURSE NOTES: RECEIVED PATIENT LYING IN BED, APPEAR TO BE ASLEEP, AWAKENED TO VERBAL STIMULI, NON VERBAL, DOES NOT FOLLOW SIMPLE COMMANDS, NO SIGNS AND SYMPTOMS OF ACUTE CARDIO RESPIRATORY DISTRESS/SHORTNESS OF BREATH, NO EDEMA NOTED. IV INTACT TO LAC/GAUGE 20, TOLERATING FLUIDS, NO REDNESS/SWELLING NOTED TO SITE. SIDE RAILS UP X3/BED IN LOWEST POSITION FOR SAFETY, CALL LIGHT WITHIN REACH. FREQUENT ROUNDING FOR SAFETY/NEEDS. NAD.
--- NOTE | 2018-11-07 22:01 | Consultation ---
History of Present Illness General Date patient seen: Nov 07, 2018 Chief Complaint: Behavioral Complaint Referring physician: Dr. Neel Rojas Present Illness HPI Ruby Hyman is a 68-year-old female, who presents with a chief complaint of altered mental status. She is nonverbal. All of the history and physical is obtained from the patient' s chart. Paramedics were called to the [email or web address] at the [facility]. The patient was unresponsive. The patient will close her eyes when asked questions. She was transported to [facility]. The patient is admitted for altered mental status to rule out acute cerebrovascular accident versus psychosis. Upon interview, she does not answer but will intermittently open her eyes to voice, occasionally follow midline/ non midline commands. Allergies: Coded Allergies: UNABLE TO ASSESS (Unverified , 11/05/18) Medication History Miscellaneous Medications Unable to Obtain Medications (Unable To Obtain Meds), (Reported) Patient History Limited by: medical condition History Provided By: Medical Record Healthcare decision maker Resuscitation status Full Code Advanced Directive on File Physical Exam Last 24 Hour Vital Signs Date Time Temp Pulse Resp B/P (MAP) Pulse Ox O2 Delivery O2 Flow Rate FiO2 11/07/18 20:00 97.9 74 17 117/75 (89) 97 11/07/18 16:00 98.0 68 17 103/58 (73) 99 11/07/18 12:00 98.7 73 17 115/72 (86) 100 11/07/18 09:00 Room Air 11/07/18 08:00 98.0 66 19 115/72 (86) 95 11/07/18 04:00 98.8 74 20 112/65 (81) 97 11/07/18 00:00 98.9 70 19 109/62 (78) 98 11/06/18 22:53 Room Air Intake and Output 11/06/18 11/07/18 19:00 07:00 Intake Total 1000 ml 900 ml Balance 1000 ml 900 ml Intake Oral 0 ml IV Total 1000 ml 900 ml # Voids 1 Laboratory Tests Test 11/07/18 05:30 White Blood Count 5.1 K/UL (4.8-10.8) Red Blood Count 3.94 M/UL (4.20-5.40) L Hemoglobin 11.2 G/DL (12.0-16.0) L Hematocrit 34.5 % (37.0-47.0) L Mean Corpuscular Volume 88 FL (80-99) Mean Corpuscular Hemoglobin 28.3 PG (27.0-31.0) Mean Corpuscular Hemoglobin Concent 32.3 G/DL (32.0-36.0) Red Cell Distribution Width 14.6 % (11.6-14.8) Platelet Count 206 K/UL (150-450) Mean Platelet Volume 8.7 FL (6.5-10.1) Neutrophils (%) (Auto) 38.9 % (45.0-75.0) L Lymphocytes (%) (Auto) 48.9 % (20.0-45.0) H Monocytes (%) (Auto) 8.4 % (1.0-10.0) Eosinophils (%) (Auto) 2.6 % (0.0-3.0) Basophils (%) (Auto) 1.2 % (0.0-2.0) Sodium Level 143 MMOL/L (136-145) Potassium Level 2.7 MMOL/L (3.5-5.1) *L Chloride Level 107 MMOL/L (98-107) Carbon Dioxide Level 28 MMOL/L (21-32) Anion Gap 8 mmol/L (5-15) Blood Urea Nitrogen 8 mg/dL (7-18) Creatinine 0.5 MG/DL (0.55-1.30) L Estimat Glomerular Filtration Rate > 60 mL/min (>60) Glucose Level 88 MG/DL (74-106) Calcium Level 8.3 MG/DL (8.5-10.1) L Total Bilirubin 0.5 MG/DL (0.2-1.0) Aspartate Amino Transf (AST/SGOT) 11 U/L (15-37) L Alanine Aminotransferase (ALT/SGPT) 18 U/L (12-78) Alkaline Phosphatase 42 U/L (46-116) L Total Protein 6.3 G/DL (6.4-8.2) L Albumin 2.7 G/DL (3.4-5.0) L Globulin 3.6 g/dL Albumin/Globulin Ratio 0.8 (1.0-2.7) L Height (Feet): 5 Height (Inches): 6.00 Weight (Pounds): 160 Medications Current Medications Medications (Trade) Dose Ordered Sig/[place] Route PRN Reason Start Time Stop Time Status Last Admin Dose Admin Dextrose (Dextrose 50%) 25 ml Q30M PRN IV Hypoglycemia 11/06/18 18:00 12/06/18 17:59 Dextrose (Dextrose 50%) 50 ml Q30MIN PRN IV Hypoglycemia 11/06/18 18:00 12/06/18 17:59 Dextrose/ Electrolytes 1,000 ml @ 50 mls/hr Q20H IV 11/07/18 14:00 12/07/18 13:59 11/07/18 14:36 Lorazepam (Ativan 2mg/ml 1ml) 0.5 mg Q4H PRN IV For Anxiety 11/06/18 18:00 11/13/18 17:59 Assessment/Plan Problem List: (1) Delirium Assessment & Plan: Localizing to pain in all four - eyes tracking, patient choosing not to participate in parts of exam but able to follow commands if inclined. ICD Codes: R41.0 - Disorientation, unspecified SNOMED: 1083684 (2) Substance abuse ICD Codes: F19.10 - Other psychoactive substance abuse, uncomplicated SNOMED: 53116843 (3) Antisocial behavior SNOMED: 96274454 Status: stable Treatment Plan: Q4 Neuro Obs Psych Consult Seroquel 25mg QHS PRN PT/OT Track trend BUN/ Cr, LFTs No indication for MRI at this time. Patient apparently ambulates to the bathroom as per staff. Maru Gross N.P. Nov 07, 2018 22:01
[2018-11-08] VITALS: BP 129/75
--- NOTE | 2018-11-08 00:30 | History and Physical Report ---
DATE OF ADMISSION: 11/06/2018 CHIEF COMPLAINT: The patient is a 68-year-old female, who presents with a chief complaint of altered mental status. HISTORY OF PRESENT ILLNESS: The patient herself is nonverbal. Much of the history and physical is obtained from the patient's chart. Paramedics were called to the [employer] factory [facility]. The patient was unresponsive. The patient will close her eyes when asked questions. The patient was transported to [facility]. The patient is admitted for altered mental status to rule out acute cerebrovascular accident versus psychosis. REVIEW OF SYSTEMS: Unable to assess secondary to the patient's mental status. PAST MEDICAL HISTORY: Unknown. PAST SURGICAL HISTORY: Unknown. CURRENT MEDICATIONS: Unknown. SOCIAL HISTORY: Unknown. PHYSICAL EXAMINATION: VITAL SIGNS: Temperature 98.9, respirations 19, pulse 70, and blood pressure 109/62. GENERAL: The patient is a well-developed and well-nourished female, in no apparent distress. HEENT: Eyes, pupils are equal and responsive to light and accommodation. Extraocular movements are intact. NECK: Supple without lymphadenopathy. CHEST: Lungs are clear to auscultation bilaterally without wheezes or rales. CARDIOVASCULAR: Regular rhythm and rate. S1 and S2 are normal without murmurs, rubs, or gallops. ABDOMEN: Soft, nontender, and nondistended. Positive bowel sounds. No evidence of hepatosplenomegaly. Currently, no rebound or guarding noted. EXTREMITIES: Negative for clubbing, cyanosis, or edema. RECTAL/GENITAL: Refused. NEUROLOGIC: Cranial nerves II through XII are grossly intact without focal deficits. LABORATORY STUDIES: WBC 7.8, hemoglobin 11.5, hematocrit 34.9, and platelets 222,000. Sodium 143, potassium 3.3, chloride 105, CO2 31, BUN 21, creatinine 0.8, and glucose 114. A CT scan of the brain was reported as no evidence of intracranial hemorrhage or mass effect or acute cerebral infarct. ASSESSMENT: This is a 68-year-old female. 1. Altered mental status. 2. Psychosis, not otherwise specified. TREATMENT: Altered mental status/psychosis. A psychiatric consultation has been obtained with Dr. Neri. We will follow recommendations of Psychiatry. Willis Peres M.D. DR: FREDA JOB#: [id number] CC:
[2018-11-08 04:00] VITALS: BP 100/65
--- NOTE | 2018-11-08 06:11 | NUR ---
NURSE NOTES: COMPLETE BED BATH/LINEN CHANGED THIS MORNING, TOLERATED WELL. REMAIN NON VERBAL. OPEN EYES, TRACKING WITHOUT DIFFICULTY. DOES NOT FOLLOW COMMANDS. SAFETY MAINTAINED THROUGHOUT THE NIGHT. NAD.
[2018-11-08 06:18] LABS: BASOPHILS % (AUTO) 0.9 % (0.0-2.0); EOSINOPHILS % (AUTO) 2.4 % (0.0-3.0); HEMATOCRIT 36.5 % (37.0-47.0); HEMOGLOBIN 11.7 G/DL (12.0-16.0); MEAN CORPUSCULAR VOLUME 88 FL (80-99); MONOCYTES % (AUTO) 7.6 % (1.0-10.0); PLATELET COUNT 236 K/UL (150-450); RED BLOOD COUNT 4.15 M/UL (4.20-5.40); RED CELL DISTRIBUTION WIDTH 14.5 % (11.6-14.8); WHITE BLOOD COUNT 7.3 K/UL (4.8-10.8)
[2018-11-08 06:30] LABS: ANION GAP 8 mmol/L (5-15); BLOOD UREA NITROGEN 4 mg/dL (7-18); CARBON DIOXIDE 28 MMOL/L (21-32); CHLORIDE 106 MMOL/L (98-107); CREATININE 0.5 MG/DL (0.55-1.30); POTASSIUM 3.2 MMOL/L (3.5-5.1); SODIUM 142 MMOL/L (136-145)
--- NOTE | 2018-11-08 07:30 | NUR ---
NURSE NOTES: RECEIVED PATIENT IN BED SIDE LYING POSITION. ACKNOWLEDGED AND DID NOT WANT TO OPEN HER EYES AND INTERACT WITH STAFF. PATIENT REMAIN NPO WITH IVF INFUSING WELL ON LAC 20G PATENT AND INTACT. KEEP BED IN THE LOWEST POSITION FOR SAFETY PURPOSES. SIDERAILS ARE UP X3 FOR FALL PRECAUTION. CALL LIGHT IS WITHIN REACH BED ALARM IS ACTIVATED. NO ACUTE RESP DISTRESS NOTED. WILL CONT TO MONITOR.
[2018-11-08 08:00] VITALS: BP 97/61
--- NOTE | 2018-11-08 08:46 | NUR ---
CHARGE NURSE NOTE: K-[employer] was called, message left.
[2018-11-08] MEDS ORDERED: 1/2 NS 1000ml IV ONE (09:41)
[2018-11-08] MEDS: D5 1/2NS w/KCl 40meq 1000ml 1,000 ML IV SCH (10:12)
[2018-11-08 12:00] VITALS: BP 120/87
--- NOTE | 2018-11-08 15:17 | Internal Med Progress Note ---
Subjective Date of Service: Nov 08, 2018 Physician Name Willis Peres Attending Physician Neel Rojas MD Current Medications Medications (Trade) Dose Ordered Sig/Wilmar Route PRN Reason Start Time Stop Time Status Last Admin Dose Admin Dextrose (Dextrose 50%) 25 ml Q30M PRN IV Hypoglycemia 11/06/18 18:00 12/06/18 17:59 Dextrose (Dextrose 50%) 50 ml Q30MIN PRN IV Hypoglycemia 11/06/18 18:00 12/06/18 17:59 Dextrose/ Electrolytes 1,000 ml @ 50 mls/hr Q20H IV 11/07/18 14:00 12/07/18 13:59 11/08/18 10:12 Haloperidol Decanoate (Haldol) 50 mg ONCE ONCE IM 11/08/18 16:00 11/08/18 16:01 Lorazepam (Ativan 2mg/ml 1ml) 1 mg Q4H PRN IV For Anxiety 11/08/18 15:30 11/13/18 15:29 Allergies: Coded Allergies: UNABLE TO ASSESS (Unverified , 11/05/18) ROS Limited/Unobtainable: Yes Subjective 68 YO F admitted with altered Mental status. Continues non verbal. Cover for Int Med-Dr Rojas. Await psych consult. Objective Last Vital Signs Date Time Temp Pulse Resp B/P (MAP) Pulse Ox O2 Delivery O2 Flow Rate FiO2 11/08/18 12:00 98.2 77 20 120/87 (98) 98 11/07/18 21:00 Room Air Laboratory Tests Test 11/08/18 04:55 White Blood Count 7.3 K/UL (4.8-10.8) Red Blood Count 4.15 M/UL (4.20-5.40) L Hemoglobin 11.7 G/DL (12.0-16.0) L Hematocrit 36.5 % (37.0-47.0) L Mean Corpuscular Volume 88 FL (80-99) Mean Corpuscular Hemoglobin 28.3 PG (27.0-31.0) Mean Corpuscular Hemoglobin Concent 32.1 G/DL (32.0-36.0) Red Cell Distribution Width 14.5 % (11.6-14.8) Platelet Count 236 K/UL (150-450) Mean Platelet Volume 8.9 FL (6.5-10.1) Neutrophils (%) (Auto) 64.0 % (45.0-75.0) Lymphocytes (%) (Auto) 25.0 % (20.0-45.0) Monocytes (%) (Auto) 7.6 % (1.0-10.0) Eosinophils (%) (Auto) 2.4 % (0.0-3.0) Basophils (%) (Auto) 0.9 % (0.0-2.0) Sodium Level 142 MMOL/L (136-145) Potassium Level 3.2 MMOL/L (3.5-5.1) L Chloride Level 106 MMOL/L (98-107) Carbon Dioxide Level 28 MMOL/L (21-32) Anion Gap 8 mmol/L (5-15) Blood Urea Nitrogen 4 mg/dL (7-18) L Creatinine 0.5 MG/DL (0.55-1.30) L Estimat Glomerular Filtration Rate > 60 mL/min (>60) Glucose Level 93 MG/DL (74-106) Calcium Level 9.0 MG/DL (8.5-10.1) Intake and Output 11/07/18 11/08/18 19:00 07:00 Intake Total 200 ml 550 ml Balance 200 ml 550 ml IV Total 200 ml 550 ml # Voids 9 Objective PHYSICAL EXAMINATION: GENERAL: The patient is a well-developed and well-nourished female, in no apparent distress. HEENT: Eyes, pupils are equal and responsive to light and accommodation. Extraocular movements are intact. NECK: Supple without lymphadenopathy. CHEST: Lungs are clear to auscultation bilaterally without wheezes or rales. CARDIOVASCULAR: Regular rhythm and rate. S1 and S2 are normal without murmurs, rubs, or gallops. ABDOMEN: Soft, nontender, and nondistended. Positive bowel sounds. No evidence of hepatosplenomegaly. Currently, no rebound or guarding noted. EXTREMITIES: Negative for clubbing, cyanosis, or edema. RECTAL/GENITAL: Refused. NEUROLOGIC: Cranial nerves II through XII are grossly intact without focal deficits. Assessment/Plan Assessment/Plan ASSESSMENT: This is a 68-year-old female. 1. Altered mental status. 2. Psychosis, not otherwise specified. TREATMENT: Altered mental status/psychosis. A psychiatric consultation has been obtained with Dr. Neri. We will follow recommendations of Psychiatry. Willis Peres MD Nov 08, 2018 15:17
--- NOTE | 2018-11-08 15:26 | NUR ---
NURSE NOTES: haldol deck given per MD order on Rt deltoid. patient appeared cooperative and still not talking to staff. has a flat affect. Goes to the bathroom indepedently. status update was relayed to Dr. Neri. Patient now can eat. PMD ordered regular diet. Will cont to monitor.
[2018-11-08] MEDS ORDERED: LORazepam Inj 2mg/ml 1ml IV PRN (15:30)
[2018-11-08 16:00] VITALS: BP 122/74
[2018-11-08] MEDS ORDERED: Haloperidol Decanoate 50mg Inj IM ONE (16:00)
--- NOTE | 2018-11-08 18:45 | NUR ---
CASE MANAGEMENT: REVIEW SI: SUBSTANCE ABUSE . AMS T 97.2 HR 82 RR 20 BP 97/61 SAT 97% ROOM AIR H/H 11.7/36.5 K 3.2 IS: ATIVAN IV PRN D5 1/2 NS IVF KCl 10mEq IV X1 MED/SURG STATUS
--- NOTE | 2018-11-08 19:06 | NUR ---
HAND-OFF: Report given to Ana María.
--- NOTE | 2018-11-08 19:28 | NUR ---
NURSE NOTES: RECEIVED PATIENT LYING IN BED, APPEAR TO BE ASLEEP, AWAKENED TO VERBAL STIMULI, EYES REMAIN CLOSED, NON VERBAL, ALL NEEDS ANTICIPATED AND MET BY NURSING STAFF. NO SIGNS AND SYMPTOMS OF ACUTE CARDIO RESPIRATORY DISTRESS/SHORTNESS OF BREATH, NO PERIPHERAL EDEMA NOTED. NO REPORT OF GI DISTRESS, NO NAUSEA/VOMITING, BOWEL SOUNDS AUDIBLE. IV INTACT, TOLERATING IV FLUIDS, NO REDNESS/SWELLING NOTED TO SITE. SIDE RAILS UPX2 FOR MOBILITY, BED IN LOWEST POSITION FOR SAFETY. CALL LIGHT WITHIN REACH. FREQUENT ROUNDING FOR SAFETY/NEEDS. NAD.
[2018-11-08 20:00] VITALS: BP 102/62
--- NOTE | 2018-11-08 23:22 | Initial Psychiatric Evaluation ---
Psychiatry Consultation Psychiatry Consultation Chief Complaint: Behavioral Complaint History of Present Illness: 68-year-old female, who presents with a chief complaint of altered mental status. The patient is mute. and has not spoken to anyone since admission. the pt was in [place] [employer] [place] and was acting bizarre. when the police arrived, the police felt she needed to be transferred to a hospital. the pt has not eaten since admission nor spoken to anyone. the pt has flat affect and is not cooperative. Toxicology is positive for meth and mj. the pt has not been taking meds. Allergies: Coded Allergies: UNABLE TO ASSESS (Unverified , 11/05/18) Medication History Miscellaneous Medications Unable to Obtain Medications (Unable To Obtain Meds), (Reported) Patient History Limited by: medical condition History Provided By: Medical Record, PMD Objective Data Height (Feet): 5 Height (Inches): 6.00 Weight (Pounds): 160 Behavior Mannerisms: poor eye contact Affect: flat Mood: no abnormalities Speech: other - mute Assessment/Plan Problem List: (1) substance abuse disorder (2) psychotic disorder Nos Treatment Plan[facility]aconate [facility] Diagnosis [place] I: see above Martin Neri MD Nov 08, 2018 23:22
[2018-11-09] VITALS: BP 106/72
[2018-11-09] MEDS: D5 1/2NS w/KCl 40meq 1000ml 1,000 ML IV SCH (00:32)
[2018-11-09 04:00] VITALS: BP 125/81
--- NOTE | 2018-11-09 06:16 | NUR ---
NURSE NOTES: SAFETY MAINTAINED, RESTED WELL THROUGHOUT THE NIGHT. NAD.
--- NOTE | 2018-11-09 07:16 | NUR ---
HAND-OFF: Report given to MARJ MEEK.
[2018-11-09 08:00] VITALS: BP 132/90
--- NOTE | 2018-11-09 08:00 | NUR ---
NURSE NOTES: Received report from Ana María MCMAHAN, pt a/a/o none verbal, none responsive, but able to open eyes but with flat affect, not able to follow commands however pt able to ambulate to the restroom with steady gait. no signs of distress or other issues at this time. no skin issues. IV on the left AC gauge#20, running D5 1/2 NS +40mEq@50ml/hr. call light within reach. bed in lowest position. side rales up x2. I will f/u as needed.
[2018-11-09 08:16] LABS: BASOPHILS % (AUTO) 0.7 % (0.0-2.0); EOSINOPHILS % (AUTO) 1.9 % (0.0-3.0); HEMATOCRIT 39.6 % (37.0-47.0); LYMPHOCYTES % (AUTO) 17.2 % (20.0-45.0); MEAN CORPUSCULAR VOLUME 88 FL (80-99); MONOCYTES % (AUTO) 8.4 % (1.0-10.0); NEUTROPHILS % (AUTO) 71.8 % (45.0-75.0); PLATELET COUNT 259 K/UL (150-450); RED BLOOD COUNT 4.52 M/UL (4.20-5.40); RED CELL DISTRIBUTION WIDTH 14.4 % (11.6-14.8); WHITE BLOOD COUNT 8.6 K/UL (4.8-10.8)
[2018-11-09 08:48] LABS: ANION GAP 10 mmol/L (5-15); BLOOD UREA NITROGEN 5 mg/dL (7-18); CALCIUM 9.1 MG/DL (8.5-10.1); CARBON DIOXIDE 25 MMOL/L (21-32); CHLORIDE 105 MMOL/L (98-107); CREATININE 0.6 MG/DL (0.55-1.30); SODIUM 140 MMOL/L (136-145)
[2018-11-09 12:00] VITALS: BP 133/69
--- NOTE | 2018-11-09 13:25 | Internal Med Progress Note ---
Subjective Date of Service: Nov 09, 2018 Physician Name Willis Peres Attending Physician Neel Rojas MD Current Medications Medications (Trade) Dose Ordered Sig/Wilmar Route PRN Reason Start Time Stop Time Status Last Admin Dose Admin Dextrose (Dextrose 50%) 25 ml Q30M PRN IV Hypoglycemia 11/06/18 18:00 12/06/18 17:59 Dextrose (Dextrose 50%) 50 ml Q30MIN PRN IV Hypoglycemia 11/06/18 18:00 12/06/18 17:59 Dextrose/ Electrolytes 1,000 ml @ 50 mls/hr Q20H IV 11/07/18 14:00 12/07/18 13:59 11/09/18 00:32 Lorazepam (Ativan 2mg/ml 1ml) 1 mg Q4H PRN IV For Anxiety 11/08/18 15:30 11/13/18 15:29 Allergies: Coded Allergies: UNABLE TO ASSESS (Unverified , 11/05/18) ROS Limited/Unobtainable: Yes Subjective 68 YO F admitted with altered Mental status. Continues non verbal. Cover for Int Med-Dr Rojas. Objective Last Vital Signs Date Time Temp Pulse Resp B/P (MAP) Pulse Ox O2 Delivery O2 Flow Rate FiO2 11/09/18 08:00 97.5 86 18 132/90 (104) 98 11/07/18 21:00 Room Air Laboratory Tests Test 11/09/18 07:33 White Blood Count 8.6 K/UL (4.8-10.8) Red Blood Count 4.52 M/UL (4.20-5.40) Hemoglobin 13.0 G/DL (12.0-16.0) Hematocrit 39.6 % (37.0-47.0) Mean Corpuscular Volume 88 FL (80-99) Mean Corpuscular Hemoglobin 28.7 PG (27.0-31.0) Mean Corpuscular Hemoglobin Concent 32.8 G/DL (32.0-36.0) Red Cell Distribution Width 14.4 % (11.6-14.8) Platelet Count 259 K/UL (150-450) Mean Platelet Volume 9.0 FL (6.5-10.1) Neutrophils (%) (Auto) 71.8 % (45.0-75.0) Lymphocytes (%) (Auto) 17.2 % (20.0-45.0) L Monocytes (%) (Auto) 8.4 % (1.0-10.0) Eosinophils (%) (Auto) 1.9 % (0.0-3.0) Basophils (%) (Auto) 0.7 % (0.0-2.0) Sodium Level 140 MMOL/L (136-145) Potassium Level 4.0 MMOL/L (3.5-5.1) Chloride Level 105 MMOL/L (98-107) Carbon Dioxide Level 25 MMOL/L (21-32) Anion Gap 10 mmol/L (5-15) Blood Urea Nitrogen 5 mg/dL (7-18) L Creatinine 0.6 MG/DL (0.55-1.30) Estimat Glomerular Filtration Rate > 60 mL/min (>60) Glucose Level 109 MG/DL (74-106) H Calcium Level 9.1 MG/DL (8.5-10.1) Intake and Output 11/08/18 11/09/18 19:00 07:00 Intake Total 900 ml 550 ml Output Total 900 ml Balance 0 ml 550 ml Intake Oral 250 ml IV Total 650 ml 550 ml Output Urine Total 900 ml # Voids 4 Objective PHYSICAL EXAMINATION: GENERAL: The patient is a well-developed and well-nourished female, in no apparent distress. HEENT: Eyes, pupils are equal and responsive to light and accommodation. Extraocular movements are intact. NECK: Supple without lymphadenopathy. CHEST: Lungs are clear to auscultation bilaterally without wheezes or rales. CARDIOVASCULAR: Regular rhythm and rate. S1 and S2 are normal without murmurs, rubs, or gallops. ABDOMEN: Soft, nontender, and nondistended. Positive bowel sounds. No evidence of hepatosplenomegaly. Currently, no rebound or guarding noted. EXTREMITIES: Negative for clubbing, cyanosis, or edema. RECTAL/GENITAL: Refused. NEUROLOGIC: Cranial nerves II through XII are grossly intact without focal deficits. Assessment/Plan Assessment/Plan ASSESSMENT: This is a 68-year-old female. 1. Altered mental status. 2. Psychosis, not otherwise specified. TREATMENT: Altered mental status/psychosis. A psychiatric consultation has been obtained with Dr. Neri. See recommendations of Psychiatry. Willis Peres MD Nov 09, 2018 13:25
[2018-11-09 16:00] VITALS: BP 120/88
--- NOTE | 2018-11-09 19:45 | NUR ---
NURSE NOTES: Received report from MARJ Christy and rounds made. Received pt lying in bed, A/OX4, non-verbal, flat affect, no distress noted. Pt follows command. IV L AC #20 patent and intact. Safety measures maintained. Bed in lowest position and locked, side rails up x 2, call light within reach. Will continue to monitor.
--- NOTE | 2018-11-09 19:49 | NUR ---
HAND-OFF: Report given to David Meadows pt instable condition.
[2018-11-09 20:00] VITALS: BP 127/92
--- NOTE | 2018-11-09 21:30 | Psych Consult Progress Note ---
Psychiatry Progress Note Psychiatry Progress Note Medications Current Medications Medications (Trade) Dose Ordered Sig/Wilmar Route PRN Reason Start Time Stop Time Status Last Admin Dose Admin Dextrose (Dextrose 50%) 25 ml Q30M PRN IV Hypoglycemia 11/06/18 18:00 12/06/18 17:59 Dextrose (Dextrose 50%) 50 ml Q30MIN PRN IV Hypoglycemia 11/06/18 18:00 12/06/18 17:59 Lorazepam (Ativan 2mg/ml 1ml) 1 mg Q4H PRN IV For Anxiety 11/08/18 15:30 11/13/18 15:29 Problems: (1) substance abuse disorder (2) psychotic disorder Nos Allergies: Coded Allergies: UNABLE TO ASSESS (Unverified , 11/05/18) Objective Data Height (Feet): 5 Height (Inches): 6.00 Weight (Pounds): 160 General Appearance: WD/WN, no apparent distress, alert Appearance: disheveled Behavior Mannerisms: poor eye contact Mental Status Exam - Affect: flat Mental Status Exam - Mood: depressed Speech: other - mute Mental Status Exam - Suicidal: not present Additional Comments: the pt pw catatonic sxs. Assessment/Plan Problem List: (1) substance abuse disorder (2) psychotic disorder Nos Assessment & Plan: Catatonia Status: unchanged Plan: haldol dec was given risperdal 2mg po qhs klonopin 1mg po qhs ativan prn Martin Neri MD Nov 09, 2018 21:30
[2018-11-10 04:00] VITALS: BP 119/74
--- NOTE | 2018-11-10 07:18 | NUR ---
NURSE NOTES: BEDSIDE ROUNDS DONE WITH NIGHT RN(EL),PATIENT AWAKE,STARING BLANKLY WHEN TALKING TO HER,FLAT AFFECT,NO SIGN OF PAIN,ROOM AIR,IV SITE ON LEFT AC INTACT,SIDE RAILSX3 UP AND BED LOCKED.WILL CONTINUE TO MONITOR.
--- NOTE | 2018-11-10 07:23 | NUR ---
HAND-OFF: Report given to MARJ Sandy. Pt in stable condition.
[2018-11-10 07:45] LABS: BASOPHILS % (AUTO) 0.8 % (0.0-2.0); EOSINOPHILS % (AUTO) 3.7 % (0.0-3.0); HEMATOCRIT 39.1 % (37.0-47.0); LYMPHOCYTES % (AUTO) 28.7 % (20.0-45.0); MEAN CORPUSCULAR VOLUME 88 FL (80-99); MONOCYTES % (AUTO) 7.1 % (1.0-10.0); NEUTROPHILS % (AUTO) 59.6 % (45.0-75.0); PLATELET COUNT 278 K/UL (150-450); RED BLOOD COUNT 4.44 M/UL (4.20-5.40); RED CELL DISTRIBUTION WIDTH 14.5 % (11.6-14.8); WHITE BLOOD COUNT 8.7 K/UL (4.8-10.8)
[2018-11-10 07:52] LABS: ANION GAP 10 mmol/L (5-15); BLOOD UREA NITROGEN 12 mg/dL (7-18); CALCIUM 9.4 MG/DL (8.5-10.1); CARBON DIOXIDE 25 MMOL/L (21-32); CHLORIDE 105 MMOL/L (98-107); CREATININE 0.7 MG/DL (0.55-1.30); POTASSIUM 3.8 MMOL/L (3.5-5.1); SODIUM 140 MMOL/L (136-145)
[2018-11-10 07:54] VITALS: BP 118/76
--- NOTE | 2018-11-10 11:23 | NUR ---
CASE MANAGEMENT:REVIEW 11/10/18 SI: SUBSTANCE ABUSE. PSYCH DISORDER 98.1 83 16 118/76 99% ON RA IS: IV ATIVAN Q4HRS PRN : TELEMETRY STATUS PLAN: PHYSICAL THERAPY EVAL DISCHARGE PLANNING
--- NOTE | 2018-11-10 11:37 | NUR ---
NURSE NOTES:SEEN BY DR. ORTIZ,PATIENT NOT RESPONDING VERBALLY TO QUESTIONS,DR. MORELOS SAW PATIENT WELL.DR. ORTIZ STATED TO GIVE ATIVAN 1MG IV FOR PATIENT BEING CATATONIC.CHARGE NURSE SERGE SINHA.
--- NOTE | 2018-11-10 11:39 | Pulmonology Progress Note ---
Assessment/Plan Problems: (1) Catatonia (2) Antisocial behavior (3) Substance abuse Assessment/Plan f/u psych recommendations might need placement. Subjective ROS Limited/Unobtainable: No Constitutional: Reports: no symptoms HEENT: Repors: no symptoms Allergies: Coded Allergies: UNABLE TO ASSESS (Unverified , 11/05/18) Objective Last 24 Hour Vital Signs Date Time Temp Pulse Resp B/P (MAP) Pulse Ox O2 Delivery O2 Flow Rate FiO2 11/10/18 07:54 98.1 83 16 118/76 (90) 99 11/10/18 07:18 Room Air 11/10/18 04:00 97.6 82 18 119/74 (89) 98 11/09/18 21:00 Room Air 11/09/18 20:00 97.7 79 17 127/92 (104) 94 11/09/18 16:00 97.8 78 18 120/88 (99) 100 11/09/18 12:00 98.0 85 18 133/69 (90) 98 Intake and Output 11/09/18 11/10/18 18:59 06:59 Intake Total 250 ml Balance 250 ml Intake Oral 250 ml # Voids 4 2 # Bowel Movements 1 General Appearance: WD/WN HEENT: normocephalic, anicteric Respiratory/Chest: chest wall non-tender, normal breath sounds Cardiovascular: normal peripheral pulses, regular rhythm Abdomen: soft, non tender Extremities: no cyanosis Skin: no rash Laboratory Tests 11/10/18 05:33: White Blood Count 8.7, Red Blood Count 4.44, Hemoglobin 13.0, Hematocrit 39.1, Mean Corpuscular Volume 88, Mean Corpuscular Hemoglobin 29.3, Mean Corpuscular Hemoglobin Concent 33.3, Red Cell Distribution Width 14.5, Platelet Count 278, Mean Platelet Volume 8.9, Neutrophils (%) (Auto) 59.6, Lymphocytes (%) (Auto) 28.7, Monocytes (%) (Auto) 7.1, Eosinophils (%) (Auto) 3.7H, Basophils (%) (Auto ) 0.8, Sodium Level 140, Potassium Level 3.8, Chloride Level 105, Carbon Dioxide Level 25, Anion Gap 10, Blood Urea Nitrogen 12, Creatinine 0.7, Estimat Glomerular Filtration Rate > 60, Glucose Level 91, Calcium Level 9.4 Current Medications Medications (Trade) Dose Ordered Sig/Wilmar Route PRN Reason Start Time Stop Time Status Last Admin Dose Admin Dextrose (Dextrose 50%) 25 ml Q30M PRN IV Hypoglycemia 11/06/18 18:00 12/06/18 17:59 Dextrose (Dextrose 50%) 50 ml Q30MIN PRN IV Hypoglycemia 11/06/18 18:00 12/06/18 17:59 Lorazepam (Ativan 2mg/ml 1ml) 1 mg Q4H PRN IV For Anxiety 11/08/18 15:30 11/13/18 15:29 Gita Dinh MD Nov 10, 2018 11:39
[2018-11-10 11:45] VITALS: BP 107/73
[2018-11-10] MEDS ORDERED: LORazepam Inj 2mg/ml 1ml IV SCH (11:45)
--- NOTE | 2018-11-10 12:05 | NUR ---
CHARGE NURSE NOTES: Pt goes to the bathroom safely, noticed that she covers herself behind with her gown, eats very well. she raised her right eyebrow when asked by MARJ Sandy "Are you okay?" She opened her mouth & almost talk when I asked her (in a different occasion.)
--- NOTE | 2018-11-10 12:33 | NUR ---
NURSE NOTES:ATE 100% FOR LUNCH.
--- NOTE | 2018-11-10 13:14 | Psych Consult Progress Note ---
Psychiatry Progress Note Psychiatry Progress Note Medications Current Medications Medications (Trade) Dose Ordered Sig/Wilmar Route PRN Reason Start Time Stop Time Status Last Admin Dose Admin Dextrose (Dextrose 50%) 25 ml Q30M PRN IV Hypoglycemia 11/06/18 18:00 12/06/18 17:59 Dextrose (Dextrose 50%) 50 ml Q30MIN PRN IV Hypoglycemia 11/06/18 18:00 12/06/18 17:59 Lorazepam (Ativan 2mg/ml 1ml) 1 mg Q4H PRN IV For Anxiety 11/08/18 15:30 11/13/18 15:29 Problems: (1) substance abuse disorder (2) psychotic disorder Nos Assessment & Plan: Catatonia Allergies: Coded Allergies: UNABLE TO ASSESS (Unverified , 11/05/18) Objective Data Height (Feet): 5 Height (Inches): 6.00 Weight (Pounds): 160 General Appearance: WD/WN, no apparent distress, alert Appearance: disheveled Mental Status Exam - Affect: flat Mental Status Exam - Suicidal: not present Assessment/Plan Problem List: (1) substance abuse disorder (2) psychotic disorder Nos Assessment & Plan: Catatonia Plan: haldol dec was given risperdal 2mg po qhs klonopin 1mg po qhs ativan prn Martin Neri MD Nov 10, 2018 13:14
[2018-11-10] MEDS ORDERED: LORazepam Inj 2mg/ml 1ml IV PRN (13:15)
[2018-11-10 16:05] VITALS: BP 108/72
--- NOTE | 2018-11-10 18:15 | NUR ---
CHARGE NURSE NOTES: OBSERVED pt fixing her own bed, straightening up the sheets. observed to be side glancing, once nobody is inside the room, she will start moving independently like pulling the overbed table to her bed then start eating. Ate 100% of her meal, knows very well to use the utensils.
--- NOTE | 2018-11-10 18:37 | Internal Med Progress Note ---
Subjective Date of Service: Nov 10, 2018 Physician Name Willis Peres Attending Physician Neel Rojas MD Current Medications Medications (Trade) Dose Ordered Sig/Wilmar Route PRN Reason Start Time Stop Time Status Last Admin Dose Admin Clonazepam (KlonoPIN) 1 mg BEDTIME ORAL 11/10/18 21:00 11/17/18 20:59 Dextrose (Dextrose 50%) 25 ml Q30M PRN IV Hypoglycemia 11/06/18 18:00 12/06/18 17:59 Dextrose (Dextrose 50%) 50 ml Q30MIN PRN IV Hypoglycemia 11/06/18 18:00 12/06/18 17:59 Lorazepam (Ativan 2mg/ml 1ml) 2 mg Q6H PRN IV For Anxiety 11/10/18 13:15 11/17/18 13:14 Risperidone (RisperDAL) 2 mg BEDTIME ORAL 11/10/18 21:00 12/10/18 20:59 Allergies: Coded Allergies: UNABLE TO ASSESS (Unverified , 11/05/18) ROS Limited/Unobtainable: Yes Subjective 68 YO F admitted with altered Mental status. Continues non verbal. Cover for Int Med-Dr Rojas. Objective Last Vital Signs Date Time Temp Pulse Resp B/P (MAP) Pulse Ox O2 Delivery O2 Flow Rate FiO2 11/10/18 16:05 98.9 86 20 108/72 (84) 98 11/10/18 07:18 Room Air Laboratory Tests Test 11/10/18 05:33 White Blood Count 8.7 K/UL (4.8-10.8) Red Blood Count 4.44 M/UL (4.20-5.40) Hemoglobin 13.0 G/DL (12.0-16.0) Hematocrit 39.1 % (37.0-47.0) Mean Corpuscular Volume 88 FL (80-99) Mean Corpuscular Hemoglobin 29.3 PG (27.0-31.0) Mean Corpuscular Hemoglobin Concent 33.3 G/DL (32.0-36.0) Red Cell Distribution Width 14.5 % (11.6-14.8) Platelet Count 278 K/UL (150-450) Mean Platelet Volume 8.9 FL (6.5-10.1) Neutrophils (%) (Auto) 59.6 % (45.0-75.0) Lymphocytes (%) (Auto) 28.7 % (20.0-45.0) Monocytes (%) (Auto) 7.1 % (1.0-10.0) Eosinophils (%) (Auto) 3.7 % (0.0-3.0) H Basophils (%) (Auto) 0.8 % (0.0-2.0) Sodium Level 140 MMOL/L (136-145) Potassium Level 3.8 MMOL/L (3.5-5.1) Chloride Level 105 MMOL/L (98-107) Carbon Dioxide Level 25 MMOL/L (21-32) Anion Gap 10 mmol/L (5-15) Blood Urea Nitrogen 12 mg/dL (7-18) Creatinine 0.7 MG/DL (0.55-1.30) Estimat Glomerular Filtration Rate > 60 mL/min (>60) Glucose Level 91 MG/DL (74-106) Calcium Level 9.4 MG/DL (8.5-10.1) Intake and Output 11/09/18 11/10/18 19:00 07:00 Intake Total 250 ml Balance 250 ml Intake Oral 250 ml # Voids 4 2 # Bowel Movements 1 Objective PHYSICAL EXAMINATION: GENERAL: The patient is a well-developed and well-nourished female, in no apparent distress. HEENT: Eyes, pupils are equal and responsive to light and accommodation. Extraocular movements are intact. NECK: Supple without lymphadenopathy. CHEST: Lungs are clear to auscultation bilaterally without wheezes or rales. CARDIOVASCULAR: Regular rhythm and rate. S1 and S2 are normal without murmurs, rubs, or gallops. ABDOMEN: Soft, nontender, and nondistended. Positive bowel sounds. No evidence of hepatosplenomegaly. Currently, no rebound or guarding noted. EXTREMITIES: Negative for clubbing, cyanosis, or edema. RECTAL/GENITAL: Refused. NEUROLOGIC: Cranial nerves II through XII are grossly intact without focal deficits. Assessment/Plan Assessment/Plan ASSESSMENT: This is a 68-year-old female. 1. Altered mental status. 2. Psychosis, not otherwise specified. TREATMENT: Altered mental status/psychosis. A psychiatric consultation has been obtained with Dr. Neri. See recommendations of Psychiatry. Willis Peres MD Nov 10, 2018 18:37
--- NOTE | 2018-11-10 19:25 | NUR ---
HAND-OFF: Report given to MIKAELA MCMAHAN.PATIENT STABLE.
--- NOTE | 2018-11-10 19:41 | NUR ---
NURSE NOTES: Received patient in bed, flat affect, non responsive to questions, no acute distress noted at this time, VSS, afebrile, call light is within reach, bed is in low position, locked, alarm is on. Will continue to monitor for safety and comfort.
[2018-11-10 20:00] VITALS: BP 113/78
[2018-11-11] VITALS: BP 117/67
--- NOTE | 2018-11-11 00:36 | Neurology Progress Note ---
Interim History Interim History ROS Limited/Unobtainable: Yes Complaints: AMS Events: No New events - exam unchanged Interim History THIS VISIT WAS PERFORMED ON NOVEMBER 08, 2018. Review of Systems All Systems: reviewed and negative except above Objective Physical Exam Last Vital Signs Date Time Temp Pulse Resp B/P (MAP) Pulse Ox O2 Delivery O2 Flow Rate FiO2 11/10/18 21:00 Room Air 11/10/18 20:00 97.2 97 18 113/78 (90) 98 Laboratory Tests Test 11/10/18 05:33 White Blood Count 8.7 K/UL (4.8-10.8) Red Blood Count 4.44 M/UL (4.20-5.40) Hemoglobin 13.0 G/DL (12.0-16.0) Hematocrit 39.1 % (37.0-47.0) Mean Corpuscular Volume 88 FL (80-99) Mean Corpuscular Hemoglobin 29.3 PG (27.0-31.0) Mean Corpuscular Hemoglobin Concent 33.3 G/DL (32.0-36.0) Red Cell Distribution Width 14.5 % (11.6-14.8) Platelet Count 278 K/UL (150-450) Mean Platelet Volume 8.9 FL (6.5-10.1) Neutrophils (%) (Auto) 59.6 % (45.0-75.0) Lymphocytes (%) (Auto) 28.7 % (20.0-45.0) Monocytes (%) (Auto) 7.1 % (1.0-10.0) Eosinophils (%) (Auto) 3.7 % (0.0-3.0) H Basophils (%) (Auto) 0.8 % (0.0-2.0) Sodium Level 140 MMOL/L (136-145) Potassium Level 3.8 MMOL/L (3.5-5.1) Chloride Level 105 MMOL/L (98-107) Carbon Dioxide Level 25 MMOL/L (21-32) Anion Gap 10 mmol/L (5-15) Blood Urea Nitrogen 12 mg/dL (7-18) Creatinine 0.7 MG/DL (0.55-1.30) Estimat Glomerular Filtration Rate > 60 mL/min (>60) Glucose Level 91 MG/DL (74-106) Calcium Level 9.4 MG/DL (8.5-10.1) Impression/Recommendations Problems: (1) Delirium Assessment & Plan: Localizing to pain in all four - eyes tracking, patient choosing not to participate in parts of exam but able to follow commands if inclined. (2) Substance abuse (3) Antisocial behavior Status: stable, tolerating diet, ambulating well, unchanged Diagnostic Impression Patient's lack of response appears to be volitional as her reflexes are intact and she can localize to noxious stimuli as well as ambulate without assistance. Recommendations Psych Follow UP PT/OT Qshift neuro obs Na 135-145 Reorient patient frequently Try to engage patient Avoid administration of opioids, benzodiazapenes or anticholinergics. Maru Gross N.P. Nov 11, 2018 00:36
--- NOTE | 2018-11-11 00:36 | Neurology Progress Note ---
Interim History Interim History ROS Limited/Unobtainable: Yes Events: THIS VISIT WAS PERFORMED ON NOVEMBER 09, 2018 Interim History No new events. Staff continue to report that patient can walk herself to the bathroom. Review of Systems All Systems: reviewed and negative except above Objective Physical Exam Last Vital Signs Date Time Temp Pulse Resp B/P (MAP) Pulse Ox O2 Delivery O2 Flow Rate FiO2 11/10/18 21:00 Room Air 11/10/18 20:00 97.2 97 18 113/78 (90) 98 Laboratory Tests Test 11/10/18 05:33 White Blood Count 8.7 K/UL (4.8-10.8) Red Blood Count 4.44 M/UL (4.20-5.40) Hemoglobin 13.0 G/DL (12.0-16.0) Hematocrit 39.1 % (37.0-47.0) Mean Corpuscular Volume 88 FL (80-99) Mean Corpuscular Hemoglobin 29.3 PG (27.0-31.0) Mean Corpuscular Hemoglobin Concent 33.3 G/DL (32.0-36.0) Red Cell Distribution Width 14.5 % (11.6-14.8) Platelet Count 278 K/UL (150-450) Mean Platelet Volume 8.9 FL (6.5-10.1) Neutrophils (%) (Auto) 59.6 % (45.0-75.0) Lymphocytes (%) (Auto) 28.7 % (20.0-45.0) Monocytes (%) (Auto) 7.1 % (1.0-10.0) Eosinophils (%) (Auto) 3.7 % (0.0-3.0) H Basophils (%) (Auto) 0.8 % (0.0-2.0) Sodium Level 140 MMOL/L (136-145) Potassium Level 3.8 MMOL/L (3.5-5.1) Chloride Level 105 MMOL/L (98-107) Carbon Dioxide Level 25 MMOL/L (21-32) Anion Gap 10 mmol/L (5-15) Blood Urea Nitrogen 12 mg/dL (7-18) Creatinine 0.7 MG/DL (0.55-1.30) Estimat Glomerular Filtration Rate > 60 mL/min (>60) Glucose Level 91 MG/DL (74-106) Calcium Level 9.4 MG/DL (8.5-10.1) General: well developed, well nourished, no acute distress Head: normocophalic, atraumatic Neck: no rigidity EENT: benign Neurologic Exam Mental Status: awake, alert, oriented x4, normal cognition, good mathematical skills, normal recent memory, normal remote memory, preserved visuospatial function Speech: normal speech, no dysarthia Language: normal language, no aphasia Cranial Nerve II: fundus normal, visual lucas, no papilledema Cranial Nerves III, IV, : PERRLA, EOMI, pupils Cranial Nerve V: normal facial sensations, temporales function normal, masseters function normal, pterygoids function normal Cranial Nerve VII: no facial asymmetry, normal facial expressions Cranial Nerve VIII: normal hearing, no nystagmus Cranial Nerve IX: normal palate elevation, gag response Cranial Nerve X: no voice hoarseness Cranial Nerve XI: SCM symmetric, trapezii function normal Cranial Nerve XII: tongue midline, no tongue atrophy/fasciculations Motor System: normal muscle tone, strength 5/5, no involuntary movement, no muscle wasting Sensory: normal pinprick, normal light touch, normal position sense, normal graphesthesia Coordination: normal finger to nose bilaterally, normal heel to lawrence bilaterally, negative Romberg test Deep Tendon Reflexes: 2+ bicep (L), 2+ bicep (R), 2+ tricep (L), 2+ tricep (R) , 2+ brachioradialis (L), 2+ brachioradialis (R), 2+ knee (L), 2+ knee (R), 2+ ankle (L), 2+ ankle (R) Stance: normal Gait: stable, normal regular, heel + toe gait Impression/Recommendations Problems: (1) Delirium Assessment & Plan: Localizing to pain in all four - eyes tracking, patient choosing not to participate in parts of exam but able to follow commands if inclined. (2) Substance abuse Assessment & Plan: CIWA Protocol can be used but patient does not appear to be having any issues with withdrawals at this time. (3) Antisocial behavior Status: stable, unchanged Recommendations Continue Q shift neuro obs Psych input appreciated PT/OT Eval Case Management Prevent delirium with frequent reorientation and engagement. Maru Gross N.P. Nov 11, 2018 00:36
--- NOTE | 2018-11-11 00:43 | Neurology Progress Note ---
Interim History Interim History ROS Limited/Unobtainable: Yes Complaints: No interim events or new complaints Events: THIS VISIT WAS PERFORMED ON NOVEMBER 10, 2018 Interim History No new events. Review of Systems All Systems: reviewed and negative except above Objective Physical Exam Last Vital Signs Date Time Temp Pulse Resp B/P (MAP) Pulse Ox O2 Delivery O2 Flow Rate FiO2 11/10/18 21:00 Room Air 11/10/18 20:00 97.2 97 18 113/78 (90) 98 Laboratory Tests Test 11/10/18 05:33 White Blood Count 8.7 K/UL (4.8-10.8) Red Blood Count 4.44 M/UL (4.20-5.40) Hemoglobin 13.0 G/DL (12.0-16.0) Hematocrit 39.1 % (37.0-47.0) Mean Corpuscular Volume 88 FL (80-99) Mean Corpuscular Hemoglobin 29.3 PG (27.0-31.0) Mean Corpuscular Hemoglobin Concent 33.3 G/DL (32.0-36.0) Red Cell Distribution Width 14.5 % (11.6-14.8) Platelet Count 278 K/UL (150-450) Mean Platelet Volume 8.9 FL (6.5-10.1) Neutrophils (%) (Auto) 59.6 % (45.0-75.0) Lymphocytes (%) (Auto) 28.7 % (20.0-45.0) Monocytes (%) (Auto) 7.1 % (1.0-10.0) Eosinophils (%) (Auto) 3.7 % (0.0-3.0) H Basophils (%) (Auto) 0.8 % (0.0-2.0) Sodium Level 140 MMOL/L (136-145) Potassium Level 3.8 MMOL/L (3.5-5.1) Chloride Level 105 MMOL/L (98-107) Carbon Dioxide Level 25 MMOL/L (21-32) Anion Gap 10 mmol/L (5-15) Blood Urea Nitrogen 12 mg/dL (7-18) Creatinine 0.7 MG/DL (0.55-1.30) Estimat Glomerular Filtration Rate > 60 mL/min (>60) Glucose Level 91 MG/DL (74-106) Calcium Level 9.4 MG/DL (8.5-10.1) Neurologic Exam Mental Status: awake, alert, oriented x4, normal cognition, good mathematical skills, normal recent memory, normal remote memory, preserved visuospatial function Speech: normal speech, no dysarthia Language: normal language, no aphasia Cranial Nerve II: fundus normal, visual lucas, no papilledema Cranial Nerves III, IV, : PERRLA, EOMI, pupils Cranial Nerve V: normal facial sensations, temporales function normal, masseters function normal, pterygoids function normal Cranial Nerve VII: no facial asymmetry, normal facial expressions Cranial Nerve VIII: normal hearing, no nystagmus Cranial Nerve IX: normal palate elevation, gag response Cranial Nerve X: no voice hoarseness Cranial Nerve XI: SCM symmetric, trapezii function normal Cranial Nerve XII: tongue midline, no tongue atrophy/fasciculations Motor System: normal muscle tone, strength 5/5, no involuntary movement, no muscle wasting Sensory: normal pinprick, normal light touch, normal position sense, normal graphesthesia Coordination: normal finger to nose bilaterally, normal heel to lawrence bilaterally, negative Romberg test Deep Tendon Reflexes: 2+ bicep (L), 2+ bicep (R), 2+ tricep (L), 2+ tricep (R) , 2+ brachioradialis (L), 2+ brachioradialis (R), 2+ knee (L), 2+ knee (R), 2+ ankle (L), 2+ ankle (R) Stance: normal Gait: stable, normal regular, heel + toe gait Impression/Recommendations Problems: (1) Delirium Assessment & Plan: Localizing to pain in all four - eyes tracking, patient choosing not to participate in parts of exam but able to follow commands if inclined. No indication for MRI Brain or any additional interventions- patient is also refusing meds. (2) Substance abuse Assessment & Plan: [facility] PR[facility]OL for assessment of withdrawal- no symptoms reported or noted on evaluation. (3) Antisocial behavior Assessment & Plan: Psych input appreciated. Status: stable, tolerating diet, ambulating well, unchanged Maru Gross.Aleks Nov 11, 2018 00:43
[2018-11-11 04:00] VITALS: BP 121/61
[2018-11-11 06:40] LABS: BASOPHILS % (AUTO) 1.1 % (0.0-2.0); EOSINOPHILS % (AUTO) 3.9 % (0.0-3.0); HEMATOCRIT 40.1 % (37.0-47.0); HEMOGLOBIN 13.2 G/DL (12.0-16.0); LYMPHOCYTES % (AUTO) 31.6 % (20.0-45.0); MEAN CORPUSCULAR VOLUME 87 FL (80-99); MONOCYTES % (AUTO) 7.1 % (1.0-10.0); NEUTROPHILS % (AUTO) 56.3 % (45.0-75.0); PLATELET COUNT 272 K/UL (150-450); RED BLOOD COUNT 4.58 M/UL (4.20-5.40); RED CELL DISTRIBUTION WIDTH 14.6 % (11.6-14.8); WHITE BLOOD COUNT 7.9 K/UL (4.8-10.8)
[2018-11-11 06:41] LABS: ANION GAP 10 mmol/L (5-15); BLOOD UREA NITROGEN 14 mg/dL (7-18); CALCIUM 9.2 MG/DL (8.5-10.1); CARBON DIOXIDE 28 MMOL/L (21-32); CHLORIDE 102 MMOL/L (98-107); CREATININE 0.7 MG/DL (0.55-1.30); POTASSIUM 3.9 MMOL/L (3.5-5.1); SODIUM 139 MMOL/L (136-145)
--- NOTE | 2018-11-11 06:51 | NUR ---
HAND-OFF: Report given to Westley MCMAHAN.
[2018-11-11 08:00] VITALS: BP 107/61
--- NOTE | 2018-11-11 08:00 | NUR ---
NURSE NOTES: Received report from Nilsa MCMAHAN, pt a/a/o laying in bed with no signs of distress, pt is none verbal, flat affect, doesn't fallow commands, however she is able to ambulate with steady gait and is able to feed her self, pt is in a regular diet, able to tolerate diet with no n/v. IV on the left AC gauge#20. call light within reach, bed in lowest position. side rales up x2. plan to d/c once bed becomes available. I will f/u as needed.
--- NOTE | 2018-11-11 09:00 | NUR ---
PT NOTE Received order for PT evaluation, medical record reviewed. Patient observed ambulating independently in her room from the bathroom and returned to her bed independently, steady gait. Attempted to interview patient however patient looked away and did not respond to therapist's questions. Patient is independent with all functional mobility, no skilled inpatient PT intervention indicated. Patient discharged from PT, Westely MCMAHAN notified.
[2018-11-11 12:00] VITALS: BP 103/67
--- NOTE | 2018-11-11 12:17 | Pulmonology Progress Note ---
Assessment/Plan Problems: (1) Catatonia (2) Antisocial behavior (3) Substance abuse Assessment/Plan f/u psych recommendations might need placement. refused PO medication Subjective ROS Limited/Unobtainable: No Constitutional: Reports: no symptoms HEENT: Repors: no symptoms Respiratory: Reports: no symptoms Allergies: Coded Allergies: UNABLE TO ASSESS (Unverified , 11/05/18) Objective Last 24 Hour Vital Signs Date Time Temp Pulse Resp B/P (MAP) Pulse Ox O2 Delivery O2 Flow Rate FiO2 11/11/18 09:00 Room Air 11/11/18 08:00 97.7 79 18 107/61 (76) 11/11/18 04:00 97.8 85 16 121/61 (81) 11/11/18 00:00 97.2 76 16 117/67 (84) 81 11/10/18 21:00 Room Air 11/10/18 20:00 97.2 97 18 113/78 (90) 98 11/10/18 16:05 98.9 86 20 108/72 (84) 98 Intake and Output 11/10/18 11/11/18 19:00 07:00 Intake Total 2300 ml Balance 2300 ml Intake Oral 2300 ml # Voids 6 2 General Appearance: WD/WN HEENT: normocephalic, atraumatic Respiratory/Chest: chest wall non-tender, lungs clear Breasts: no masses Cardiovascular: normal peripheral pulses Abdomen: normal bowel sounds, soft, non tender Extremities: no cyanosis Skin: no rash Laboratory Tests 11/11/18 05:20: White Blood Count 7.9, Red Blood Count 4.58, Hemoglobin 13.2, Hematocrit 40.1, Mean Corpuscular Volume 87, Mean Corpuscular Hemoglobin 28.7, Mean Corpuscular Hemoglobin Concent 32.8, Red Cell Distribution Width 14.6, Platelet Count 272, Mean Platelet Volume 8.3, Neutrophils (%) (Auto) 56.3, Lymphocytes (%) (Auto) 31.6, Monocytes (%) (Auto) 7.1, Eosinophils (%) (Auto) 3.9H, Basophils (%) (Auto ) 1.1, Sodium Level 139, Potassium Level 3.9, Chloride Level 102, Carbon Dioxide Level 28, Anion Gap 10, Blood Urea Nitrogen 14, Creatinine 0.7, Estimat Glomerular Filtration Rate > 60, Glucose Level 91, Calcium Level 9.2 Current Medications Medications (Trade) Dose Ordered Sig/Wilmar Route PRN Reason Start Time Stop Time Status Last Admin Dose Admin Clonazepam (KlonoPIN) 1 mg BEDTIME ORAL 11/10/18 21:00 11/17/18 20:59 Dextrose (Dextrose 50%) 25 ml Q30M PRN IV Hypoglycemia 11/06/18 18:00 12/06/18 17:59 Dextrose (Dextrose 50%) 50 ml Q30MIN PRN IV Hypoglycemia 11/06/18 18:00 12/06/18 17:59 Lorazepam (Ativan 2mg/ml 1ml) 2 mg Q6H PRN IV For Anxiety 11/10/18 13:15 11/17/18 13:14 Risperidone (RisperDAL) 2 mg BEDTIME ORAL 11/10/18 21:00 12/10/18 20:59 Gita Dinh MD Nov 11, 2018 12:17
--- NOTE | 2018-11-11 12:49 | NUR ---
CASE MANAGEMENT:REVIEW 11/11/18 SI: DELIRIUM. ANTI-SOCIAL BEHAVIOR CATATONIA 97.7 86 19 103/67 98% ON RA IS: KLONOPIN PO QHS RISPERDAL PO QHS IV ATIVAN Q6HRS PRN : MED/SURG STATUS 3 [facility]
--- NOTE | 2018-11-11 13:21 | Psych Consult Progress Note ---
Psychiatry Progress Note Psychiatry Progress Note Subjective the pt is not speaking and is still mute the pt eats well the pt endorses disorganized behavior. the pt lacks capacity to refuse meds the pt has refused all her po meds Medications Current Medications Medications (Trade) Dose Ordered Sig/Wilmar Route PRN Reason Start Time Stop Time Status Last Admin Dose Admin Clonazepam (KlonoPIN) 1 mg BEDTIME ORAL 11/10/18 21:00 11/17/18 20:59 Dextrose (Dextrose 50%) 25 ml Q30M PRN IV Hypoglycemia 11/06/18 18:00 12/06/18 17:59 Dextrose (Dextrose 50%) 50 ml Q30MIN PRN IV Hypoglycemia 11/06/18 18:00 12/06/18 17:59 Haloperidol Decanoate (Haldol) 50 mg ONCE ONCE IM 11/11/18 13:15 11/11/18 13:16 UNV Lorazepam (Ativan 2mg/ml 1ml) 2 mg Q6H PRN IV For Anxiety 11/10/18 13:15 11/17/18 13:14 Risperidone (RisperDAL) 2 mg BEDTIME ORAL 11/10/18 21:00 12/10/18 20:59 Allergies: Coded Allergies: UNABLE TO ASSESS (Unverified , 11/05/18) Objective Data Height (Feet): 5 Height (Inches): 6.00 Weight (Pounds): 160 General Appearance: WD/WN, no apparent distress, alert Appearance: disheveled Behavior Mannerisms: poor eye contact Mental Status Exam - Affect: flat Mental Status Exam - Mood: depressed Perceptual Disturbances: auditory Mental Status Exam - Suicidal: not present Assessment/Plan Problem List: (1) substance abuse disorder (2) Schizophrenia, 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
[2018-11-11] MEDS: LORazepam Inj 2mg/ml 1ml IM SCH ×2 (13:51→23:36)
[2018-11-11] MEDS ORDERED: Haloperidol Decanoate 50mg Inj IM ONE (15:00)
[2018-11-11 16:00] VITALS: BP 130/77
--- NOTE | 2018-11-11 17:08 | NUR ---
Social Service Note SW contacted missing person [phone] and completed a report with Det. Lorenzo. Patient not answering questions but provided eye contact while SW was in patient's room. No ID in patient's belongings. Will monitor.
--- NOTE | 2018-11-11 18:12 | Internal Med Progress Note ---
Subjective Date of Service: Nov 11, 2018 Physician Name LarisaWillis Attending Physician Neel Rojas MD Current Medications Medications (Trade) Dose Ordered Sig/Wilmar Route PRN Reason Start Time Stop Time Status Last Admin Dose Admin Clonazepam (KlonoPIN) 1 mg BEDTIME ORAL 11/10/18 21:00 11/17/18 20:59 Dextrose (Dextrose 50%) 25 ml Q30M PRN IV Hypoglycemia 11/06/18 18:00 12/06/18 17:59 Dextrose (Dextrose 50%) 50 ml Q30MIN PRN IV Hypoglycemia 11/06/18 18:00 12/06/18 17:59 Haloperidol Lactate (Haldol) 10 mg BEDTIME IM 11/11/18 21:00 12/11/18 20:59 Lorazepam (Ativan 2mg/ml 1ml) 1 mg EVERY 8 HOURS IM 11/11/18 14:00 11/18/18 13:59 11/11/18 13:51 Risperidone (RisperDAL) 2 mg BID ORAL 11/11/18 18:00 12/11/18 17:59 11/11/18 17:24 Allergies: Coded Allergies: UNABLE TO ASSESS (Unverified , 11/05/18) ROS Limited/Unobtainable: Yes Subjective 68 YO F admitted with altered Mental status. Continues non verbal. Cover for Int Med-Dr Rojas. Objective Last Vital Signs Date Time Temp Pulse Resp B/P (MAP) Pulse Ox O2 Delivery O2 Flow Rate FiO2 11/11/18 16:00 98.3 100 20 130/77 (94) 11/11/18 09:00 Room Air 11/10/18 20:00 98 Laboratory Tests Test 11/11/18 05:20 White Blood Count 7.9 K/UL (4.8-10.8) Red Blood Count 4.58 M/UL (4.20-5.40) Hemoglobin 13.2 G/DL (12.0-16.0) Hematocrit 40.1 % (37.0-47.0) Mean Corpuscular Volume 87 FL (80-99) Mean Corpuscular Hemoglobin 28.7 PG (27.0-31.0) Mean Corpuscular Hemoglobin Concent 32.8 G/DL (32.0-36.0) Red Cell Distribution Width 14.6 % (11.6-14.8) Platelet Count 272 K/UL (150-450) Mean Platelet Volume 8.3 FL (6.5-10.1) Neutrophils (%) (Auto) 56.3 % (45.0-75.0) Lymphocytes (%) (Auto) 31.6 % (20.0-45.0) Monocytes (%) (Auto) 7.1 % (1.0-10.0) Eosinophils (%) (Auto) 3.9 % (0.0-3.0) H Basophils (%) (Auto) 1.1 % (0.0-2.0) Sodium Level 139 MMOL/L (136-145) Potassium Level 3.9 MMOL/L (3.5-5.1) Chloride Level 102 MMOL/L (98-107) Carbon Dioxide Level 28 MMOL/L (21-32) Anion Gap 10 mmol/L (5-15) Blood Urea Nitrogen 14 mg/dL (7-18) Creatinine 0.7 MG/DL (0.55-1.30) Estimat Glomerular Filtration Rate > 60 mL/min (>60) Glucose Level 91 MG/DL (74-106) Calcium Level 9.2 MG/DL (8.5-10.1) Intake and Output 11/10/18 11/11/18 19:00 07:00 Intake Total 2300 ml Balance 2300 ml Intake Oral 2300 ml # Voids 6 2 Objective PHYSICAL EXAMINATION: GENERAL: The patient is a well-developed and well-nourished female, in no apparent distress. HEENT: Eyes, pupils are equal and responsive to light and accommodation. Extraocular movements are intact. NECK: Supple without lymphadenopathy. CHEST: Lungs are clear to auscultation bilaterally without wheezes or rales. CARDIOVASCULAR: Regular rhythm and rate. S1 and S2 are normal without murmurs, rubs, or gallops. ABDOMEN: Soft, nontender, and nondistended. Positive bowel sounds. No evidence of hepatosplenomegaly. Currently, no rebound or guarding noted. EXTREMITIES: Negative for clubbing, cyanosis, or edema. RECTAL/GENITAL: Refused. NEUROLOGIC: Cranial nerves II through XII are grossly intact without focal deficits. Assessment/Plan Assessment/Plan ASSESSMENT: This is a 68-year-old female. 1. Altered mental status. 2. Psychosis, not otherwise specified. 3. Catatonia TREATMENT: Altered mental status/psychosis-catatonia. A psychiatric consultation has been obtained with Dr. Neri. See recommendations of Psychiatry. Willis Peres MD Nov 11, 2018 18:12
--- NOTE | 2018-11-11 19:33 | NUR ---
HAND-OFF: Report given to Caitlin MCMAHAN, pt in stable condition.
[2018-11-11 20:00] VITALS: BP 104/64
--- NOTE | 2018-11-11 20:30 | NUR ---
NURSE NOTES: Received patient in bed, flat affect, non responsive to questions, no s/s of acute distress noted at this time, VSS, safety call light is within reach, bed is in low position, locked, alarm is on. Will continue to monitor.
[2018-11-11] MEDS: Haloperidol 5mg/ml Inj IM SCH (21:52)
--- NOTE | 2018-11-11 21:52 | Neurology Progress Note ---
Interim History Interim History ROS Limited/Unobtainable: Yes Complaints: No interim events or new complaints Events: Patient ambulates independently with no gait deficits but not on command. Review of Systems All Systems: reviewed and negative except above Objective Physical Exam Last Vital Signs Date Time Temp Pulse Resp B/P (MAP) Pulse Ox O2 Delivery O2 Flow Rate FiO2 11/11/18 16:00 98.3 100 20 130/77 (94) 11/11/18 09:00 Room Air 11/10/18 20:00 98 Laboratory Tests Test 11/11/18 05:20 White Blood Count 7.9 K/UL (4.8-10.8) Red Blood Count 4.58 M/UL (4.20-5.40) Hemoglobin 13.2 G/DL (12.0-16.0) Hematocrit 40.1 % (37.0-47.0) Mean Corpuscular Volume 87 FL (80-99) Mean Corpuscular Hemoglobin 28.7 PG (27.0-31.0) Mean Corpuscular Hemoglobin Concent 32.8 G/DL (32.0-36.0) Red Cell Distribution Width 14.6 % (11.6-14.8) Platelet Count 272 K/UL (150-450) Mean Platelet Volume 8.3 FL (6.5-10.1) Neutrophils (%) (Auto) 56.3 % (45.0-75.0) Lymphocytes (%) (Auto) 31.6 % (20.0-45.0) Monocytes (%) (Auto) 7.1 % (1.0-10.0) Eosinophils (%) (Auto) 3.9 % (0.0-3.0) H Basophils (%) (Auto) 1.1 % (0.0-2.0) Sodium Level 139 MMOL/L (136-145) Potassium Level 3.9 MMOL/L (3.5-5.1) Chloride Level 102 MMOL/L (98-107) Carbon Dioxide Level 28 MMOL/L (21-32) Anion Gap 10 mmol/L (5-15) Blood Urea Nitrogen 14 mg/dL (7-18) Creatinine 0.7 MG/DL (0.55-1.30) Estimat Glomerular Filtration Rate > 60 mL/min (>60) Glucose Level 91 MG/DL (74-106) Calcium Level 9.2 MG/DL (8.5-10.1) General: well developed, well nourished, no acute distress Head: normocophalic, atraumatic Neck: no rigidity EENT: benign Neurologic Exam Mental Status: awake, alert, oriented x4, normal cognition, good mathematical skills, normal recent memory, normal remote memory, preserved visuospatial function Speech: normal speech, no dysarthia Language: normal language, no aphasia Cranial Nerve II: fundus normal, visual lucas, no papilledema Cranial Nerves III, IV, : PERRLA, EOMI, pupils Cranial Nerve V: normal facial sensations, temporales function normal, masseters function normal, pterygoids function normal Cranial Nerve VII: no facial asymmetry, normal facial expressions Cranial Nerve VIII: normal hearing, no nystagmus Cranial Nerve IX: normal palate elevation, gag response Cranial Nerve X: no voice hoarseness Cranial Nerve XI: SCM symmetric, trapezii function normal Cranial Nerve XII: tongue midline, no tongue atrophy/fasciculations Motor System: normal muscle tone, strength 5/5, no involuntary movement, no muscle wasting Sensory: normal pinprick, normal light touch, normal position sense, normal graphesthesia Coordination: normal finger to nose bilaterally, normal heel to lawrence bilaterally, negative Romberg test Deep Tendon Reflexes: 2+ bicep (L), 2+ bicep (R), 2+ tricep (L), 2+ tricep (R) , 2+ brachioradialis (L), 2+ brachioradialis (R), 2+ knee (L), 2+ knee (R), 2+ ankle (L), 2+ ankle (R) Stance: normal Gait: stable, normal regular, heel + toe gait Impression/Recommendations Problems: (1) Delirium Assessment & Plan: Localizing to pain in all four - eyes tracking, patient choosing not to participate in parts of exam but able to follow commands if inclined. No indication for MRI Brain or any additional interventions- patient is also refusing meds. Will check TSH to ensure no additional underlying metabolic causes for behavioral noncompliance . (2) Substance abuse Assessment & Plan: [facility] PROT[facility]OL for assessment of withdrawal- no symptoms reported or noted on evaluation. (3) Antisocial behavior Assessment & Plan: Psych input appreciated. Status: stable, tolerating diet, ambulating well, unchanged Diagnostic Impression Patient's lack of response appears to be volitional as her reflexes are intact and she can localize to noxious stimuli as well as ambulate without assistance. Recommendations Continue Q shift neuro obs Psych input appreciated PT/OT Eval Case Management Prevent delirium with frequent reorientation and engagement. Maru Gross N.P. Nov 11, 2018 21:52
[2018-11-12] VITALS: BP 109/76
[2018-11-12 04:00] VITALS: BP 119/73
[2018-11-12] MEDS: LORazepam Inj 2mg/ml 1ml IM SCH ×3 (06:32→22:17)
--- NOTE | 2018-11-12 07:15 | NUR ---
HAND-OFF: Report given to Westley MCMAHAN; pt in stable condition; rounds done..
[2018-11-12 08:00] VITALS: BP 116/78
--- NOTE | 2018-11-12 08:00 | NUR ---
NURSE NOTES: Received report from Caitlin MCMAHAN, pt a/a/o with flat affect, catatonic, none verbal, no able to fallow commands. however pt is able to walk to the restroom, around the room with steady gait. pt on a regular diet eating 100% with no signs of n/v nor dysphagia. IV on the left AC gauge #20 heplock. ishmael light within reach. bed in lowest position. side rales up x2. I will f/u as needed.
--- NOTE | 2018-11-12 09:54 | NUR ---
CASE MANAGEMENT:REVIEW 11/12/18 SI: DELIRIUM. ANTI-SOCIAL BEHAVIOR CATATONIA 97.6 92 18 116/78 98% ON RA IS: KLONOPIN PO QHS RISPERDAL PO QHS ATIVAN IM Q8HRS HALDOL IM QHS : MED/SURG STATUS 3 [facility]
--- NOTE | 2018-11-12 10:42 | NUR ---
SS note This Sw made an attempt to speak with patient, who continues to close her eyes, does not want to interact at this time. Patient possible showing inability to speak Sinhala (other language spoken) vs not able to hear? Patient has dirty finger nails and this SW questioning homelessness at this time, resisting to speak with others due to does not wish to leave the hospital. Patient is independent with all ADLs, ambulation in room (does not require any DME). Abby Cervantes following up with missing persons.
[2018-11-12 12:00] VITALS: BP 115/76
[2018-11-12 16:00] VITALS: BP 95/61
--- NOTE | 2018-11-12 19:17 | Internal Med Progress Note ---
Subjective Date of Service: Nov 12, 2018 Physician Name Willis Peres Attending Physician Neel Rojas MD Current Medications Medications (Trade) Dose Ordered Sig/Wilmar Route PRN Reason Start Time Stop Time Status Last Admin Dose Admin Clonazepam (KlonoPIN) 1 mg BEDTIME ORAL 11/10/18 21:00 11/17/18 20:59 11/11/18 21:52 Dextrose (Dextrose 50%) 25 ml Q30M PRN IV Hypoglycemia 11/06/18 18:00 12/06/18 17:59 Dextrose (Dextrose 50%) 50 ml Q30MIN PRN IV Hypoglycemia 11/06/18 18:00 12/06/18 17:59 Haloperidol Lactate (Haldol) 10 mg BEDTIME IM 11/11/18 21:00 12/11/18 20:59 11/11/18 21:52 Lorazepam (Ativan 2mg/ml 1ml) 1 mg EVERY 8 HOURS IM 11/11/18 14:00 11/18/18 13:59 11/12/18 14:40 Risperidone (RisperDAL) 2 mg BID ORAL 11/11/18 18:00 12/11/18 17:59 11/12/18 18:14 Allergies: Coded Allergies: UNABLE TO ASSESS (Unverified , 11/05/18) ROS Limited/Unobtainable: Yes Subjective 68 YO F admitted with altered Mental status. Continues non verbal. Cover for Int Med-Dr Rojas. Objective Last Vital Signs Date Time Temp Pulse Resp B/P (MAP) Pulse Ox O2 Delivery O2 Flow Rate FiO2 11/12/18 16:00 98.6 111 17 95/61 (72) 98 11/12/18 09:00 Room Air Intake and Output 11/11/18 11/12/18 18:59 06:59 Intake Total 720 ml 720 ml Balance 720 ml 720 ml Intake Oral 720 ml 720 ml # Voids 2 1 # Bowel Movements 1 Objective PHYSICAL EXAMINATION: GENERAL: The patient is a well-developed and well-nourished female, in no apparent distress. HEENT: Eyes, pupils are equal and responsive to light and accommodation. Extraocular movements are intact. NECK: Supple without lymphadenopathy. CHEST: Lungs are clear to auscultation bilaterally without wheezes or rales. CARDIOVASCULAR: Regular rhythm and rate. S1 and S2 are normal without murmurs, rubs, or gallops. ABDOMEN: Soft, nontender, and nondistended. Positive bowel sounds. No evidence of hepatosplenomegaly. Currently, no rebound or guarding noted. EXTREMITIES: Negative for clubbing, cyanosis, or edema. RECTAL/GENITAL: Refused. NEUROLOGIC: Cranial nerves II through XII are grossly intact without focal deficits. Assessment/Plan Assessment/Plan ASSESSMENT: This is a 68-year-old female. 1. Altered mental status. 2. Psychosis, not otherwise specified. 3. Catatonia TREATMENT: Altered mental status/psychosis-catatonia. A psychiatric consultation has been obtained with Dr. Neri. See recommendations of Psychiatry. Willis Peres MD Nov 12, 2018 19:17
--- NOTE | 2018-11-12 19:30 | NUR ---
NURSE NOTES: Received report & pt from MARJ Christy. Pt lying in bed, catatonic, non-verbal but follows commands, in room air. No s/s of acute distress & no s/s of pain. IV site intact & S/L'd. Per AM shift report, pt able to walk to bathroom with steady gait. Bed in lowest position, call light within reach. Will continue to monitor.
--- NOTE | 2018-11-12 19:40 | NUR ---
HAND-OFF: Report given to Caitlin MCMAHAN. pt in stable condition.
[2018-11-12 20:25] VITALS: BP 91/52
[2018-11-12] MEDS: Haloperidol 5mg/ml Inj IM SCH (20:53)
--- NOTE | 2018-11-12 21:05 | NUR ---
NURSE NOTES: pt awake, drank orange juice & got up to use the toilet. Offered pt more orange juice but pt did not respond to RN.
--- NOTE | 2018-11-12 21:37 | Psych Consult Progress Note ---
Psychiatry Progress Note Psychiatry Progress Note Subjective the pt cont to be mute the pt is eating however has disorganized behavior Medications Current Medications Medications (Trade) Dose Ordered Sig/Wilmar Route PRN Reason Start Time Stop Time Status Last Admin Dose Admin Clonazepam (KlonoPIN) 1 mg BEDTIME ORAL 11/10/18 21:00 11/17/18 20:59 11/11/18 21:52 Dextrose (Dextrose 50%) 25 ml Q30M PRN IV Hypoglycemia 11/06/18 18:00 12/06/18 17:59 Dextrose (Dextrose 50%) 50 ml Q30MIN PRN IV Hypoglycemia 11/06/18 18:00 12/06/18 17:59 Haloperidol Lactate (Haldol) 10 mg BEDTIME IM 11/11/18 21:00 12/11/18 20:59 11/12/18 20:53 Lorazepam (Ativan 2mg/ml 1ml) 1 mg EVERY 8 HOURS IM 11/11/18 14:00 11/18/18 13:59 11/12/18 14:40 Risperidone (RisperDAL) 2 mg BID ORAL 11/11/18 18:00 12/11/18 17:59 11/12/18 18:14 Allergies: Coded Allergies: UNABLE TO ASSESS (Unverified , 11/05/18) Objective Data Height (Feet): 5 Height (Inches): 6.00 Weight (Pounds): 165 Appearance: disheveled Behavior Mannerisms: poor eye contact Mental Status Exam - Affect: flat Assessment/Plan Problem List: (1) substance abuse disorder (2) Schizophrenia, 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 the pt lacks capacity to refuse meds the pt has refused all her po meds Martin Neri MD Nov 12, 2018 21:36
--- NOTE | 2018-11-12 23:17 | Neurology Progress Note ---
Interim History Interim History ROS Limited/Unobtainable: Yes Complaints: No interim events or new complaints Events: THIS VISIT WAS PERFORMED ON NOVEMBER 10, 2018 Objective Physical Exam Last Vital Signs Date Time Temp Pulse Resp B/P (MAP) Pulse Ox O2 Delivery O2 Flow Rate FiO2 11/12/18 20:42 Room Air 11/12/18 20:25 97.9 88 18 91/52 (65) 100 General: well developed, well nourished, no acute distress Head: normocophalic, atraumatic Neck: no rigidity EENT: benign Neurologic Exam Mental Status: awake, alert, oriented x4, normal cognition, good mathematical skills, normal recent memory, normal remote memory, preserved visuospatial function Speech: normal speech, no dysarthia Language: normal language, no aphasia Cranial Nerve II: fundus normal, visual lucas, no papilledema Cranial Nerves III, IV, : PERRLA, EOMI, pupils Cranial Nerve V: normal facial sensations, temporales function normal, masseters function normal, pterygoids function normal Cranial Nerve VII: no facial asymmetry, normal facial expressions Cranial Nerve VIII: normal hearing, no nystagmus Cranial Nerve IX: normal palate elevation, gag response Cranial Nerve X: no voice hoarseness Cranial Nerve XI: SCM symmetric, trapezii function normal Cranial Nerve XII: tongue midline, no tongue atrophy/fasciculations Motor System: normal muscle tone, strength 5/5, no involuntary movement, no muscle wasting Sensory: normal pinprick, normal light touch, normal position sense, normal graphesthesia Coordination: normal finger to nose bilaterally, normal heel to lawrence bilaterally, negative Romberg test Deep Tendon Reflexes: 2+ bicep (L), 2+ bicep (R), 2+ tricep (L), 2+ tricep (R) , 2+ brachioradialis (L), 2+ brachioradialis (R), 2+ knee (L), 2+ knee (R), 2+ ankle (L), 2+ ankle (R) Stance: normal Gait: stable, normal regular, heel + toe gait Impression/Recommendations Problems: (1) Delirium Assessment & Plan: Localizing to pain in all four - eyes tracking, patient choosing not to participate in parts of exam but able to follow commands if inclined. No indication for MRI Brain or any additional interventions- patient is also refusing meds. (2) Substance abuse Assessment & Plan: [facility] for assessment of withdrawal- no symptoms reported or noted on evaluation. (3) Antisocial behavior Assessment & Plan: Psych input appreciated. Status: stable, tolerating diet, ambulating well, unchanged Diagnostic Impression Patient's lack of response appears to be volitional as her reflexes are intact and she can localize to noxious stimuli as well as ambulate without assistance. Recommendations Continue Q shift neuro obs Psych input appreciated PT/OT Eval Case Management Prevent delirium with frequent reorientation and engagement. Maru Gross N.P. Nov 12, 2018 23:17
[2018-11-13] VITALS: BP 119/68
[2018-11-13 04:00] VITALS: BP 99/65
[2018-11-13] MEDS: LORazepam Inj 2mg/ml 1ml IM SCH (05:07)
[2018-11-13 07:23] LABS: BASOPHILS % (AUTO) 0.8 % (0.0-2.0); EOSINOPHILS % (AUTO) 4.4 % (0.0-3.0); HEMATOCRIT 37.5 % (37.0-47.0); HEMOGLOBIN 12.3 G/DL (12.0-16.0); LYMPHOCYTES % (AUTO) 33.5 % (20.0-45.0); MEAN CORPUSCULAR VOLUME 88 FL (80-99); MONOCYTES % (AUTO) 8.7 % (1.0-10.0); NEUTROPHILS % (AUTO) 52.6 % (45.0-75.0); PLATELET COUNT 261 K/UL (150-450); RED BLOOD COUNT 4.28 M/UL (4.20-5.40); RED CELL DISTRIBUTION WIDTH 14.4 % (11.6-14.8); WHITE BLOOD COUNT 6.1 K/UL (4.8-10.8)
[2018-11-13 07:25] LABS: ANION GAP 7 mmol/L (5-15); BLOOD UREA NITROGEN 13 mg/dL (7-18); CALCIUM 9.3 MG/DL (8.5-10.1); CARBON DIOXIDE 29 MMOL/L (21-32); CHLORIDE 104 MMOL/L (98-107); CREATININE 0.6 MG/DL (0.55-1.30); POTASSIUM 4.3 MMOL/L (3.5-5.1); SODIUM 140 MMOL/L (136-145)
--- NOTE | 2018-11-13 07:30 | NUR ---
HAND-OFF: Report given to MARJ Bran. Pt in stable condition. Rounds done with incoming RN.
--- NOTE | 2018-11-13 07:30 | NUR ---
NURSE NOTES: WALKING ROUNDS DONE WITH OUTGOING RN. PATIENT ASLEEP IN BED; EASY TO AROUSE; NON-VERBAL. WILL GIVE SLIGHT EYE CONTACT. DISCUSSED PLAN OF CARE FOR THE DAY. CALL LIGHT WITHIN REACH. BED IN LOW AND LOCKED POSITION.
[2018-11-13 08:00] VITALS: BP 106/67
--- NOTE | 2018-11-13 09:40 | NUR ---
CHARGE NURSE NOTE: Pt was trying to escape. Security and charge nurse brought her back to the floor. and notified.
--- NOTE | 2018-11-13 09:45 | NUR ---
NURSE NOTES: PATIENT WAS CALM AND COOPERATIVE THIS A.M. TOOK SCHEDULED 0900 MED. PER DENTAL OFFICE ASSISTANT AND RN SITTING AT DESK, PATIENT ASKED WHERE SHE CAN SHOWER AND WOULD LIKE A SHOWER. SEVERAL MINUTES LATER PATIENT WAS DRESSED IN HER PERSONAL CLOTHES AND WAS ATTEMPTING TO EXIT THROUGH THE BACK DOOR. ATTEMPTED RE-ORIENT PATIENT AND TO WAIT FOR MD TO SEE HER. PATIENT CONTINUED WALKING AND ENTERED ELEVATOR. SECURITY CALLED AND PATIENT WAS COOPERATIVE TO RETURN BACK TO [address] [place] [address] LOPEZ NOTIFIED BY [facility] CHARGE NURSE; WILL BE HERE TO SEE PATIENT AND PATIENT WAS INFORMED WELL.
--- NOTE | 2018-11-13 10:30 | NUR ---
NURSE NOTES: PATIENT WAITING FOR MD TO COME. PATIENT GETTING ANXIOUS TO LEAVE AGAIN. ATTEMPTED TO TALK WITH PATIENT TO STAY UNTIL MD ARRIVES. PATIENT NON-VERBAL NOT WILLING TO COOPERATE. LEFT NURSING UNIT, SECURITY CALLED, DR. LOPEZ CALLED.PER MD PT. IS NOT ON HOLD AND IS NOT A THREAT TO ANYONE AND MAY LEAVE AMA. PATIENT REFUSED TO SIGN AMA AND LEFT HOSPITAL. NO IV AND HOSPITAL BAND REMOVED. NURSING BODY PIERCER AND CHARGE NURSE AWARE OF OCCURRENCE.
--- NOTE | 2018-11-13 10:30 | NUR ---
Social Service Note SW met with patient downstairs with security. Patient provided SW her name Debora Warren and her age 43. Patient states Mandy has allowed her to speak with SW. Patient states she is not crazy and that Mandy is helping her with her anxiety. Patient denies family and that only Mandy is looking after her. Patient was agreeable to return to her room. Patient stated she has a place to go but would not provide SW address or location. Patient states she didn't want to stay in the hospital any longer. SW reviewed prior ER visits of Debora Warren. [place] ID on file confirmed patient's identity. ID is valid until 02/06/2020. SW completed skip trace of address listed [address] [place]. This address is also listed in ER visits in 2018. Name listed Peterson Sawant [phone]. SW left a message, no return call at this time. The name Peterson Sawant also listed in previous ER visits. Patient with ER visits from [phone]. In these visits no indication of homelessness. SW contacted patient PCP associated with health plan Dr. Joaquin Dillon [phone]. Per office staff patient with no office visits. SW attempted to contact other emergency contacts listed Lon Dutton [phone] and [facility] [phone], no VM to leave a message. JOSHUA followed up with missing person's [phone] Det. Bj and provided name and date of . Patient is not listed a missing and doesn't have any prior missing cases in [facility].
--- NOTE | 2018-11-13 10:44 | NUR ---
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 ANTI-SOCIAL BEHAVIOR VS: BP 99/65, P 92, T 97.2, RR 19, SpO2 98 SI:LORAZEPAM 1mg IM RISPERIDONE 2mg HALDOL 10mg IM 3E MED/SURG STATUS
--- NOTE | 2018-11-13 12:39 | Psych Consult Progress Note ---
Psychiatry Progress Note Psychiatry Progress Note Subjective the pt was calmer today and stated her name. I received the call that the pt is going "elope" the pt was not suicidal nor homicidal the pt spoke today and told the staff her name Medications Current Medications Medications (Trade) Dose Ordered Sig/Wilmar Route PRN Reason Start Time Stop Time Status Last Admin Dose Admin Clonazepam (KlonoPIN) 1 mg BEDTIME ORAL 11/10/18 21:00 11/17/18 20:59 11/11/18 21:52 Dextrose (Dextrose 50%) 25 ml Q30M PRN IV Hypoglycemia 11/06/18 18:00 12/06/18 17:59 Dextrose (Dextrose 50%) 50 ml Q30MIN PRN IV Hypoglycemia 11/06/18 18:00 12/06/18 17:59 Haloperidol Lactate (Haldol) 10 mg BEDTIME IM 11/11/18 21:00 12/11/18 20:59 11/12/18 20:53 Lorazepam (Ativan 2mg/ml 1ml) 1 mg EVERY 8 HOURS IM 11/11/18 14:00 11/18/18 13:59 11/13/18 05:07 Risperidone (RisperDAL) 2 mg BID ORAL 11/11/18 18:00 12/11/18 17:59 11/13/18 09:16 Neurological/Psychiatric: Reports: anxiety, depressed, emotional problems Allergies: Coded Allergies: UNABLE TO ASSESS (Unverified , 11/05/18) Objective Data Height (Feet): 5 Height (Inches): 6.00 Weight (Pounds): 165 General Appearance: WD/WN, no apparent distress, alert Appearance: disheveled, bizarre Behavior Mannerisms: poor eye contact Mental Status Exam - Affect: flat Mental Status Exam - Mood: depressed Mental Status Exam - Suicidal: no plan Assessment/Plan Problem List: (1) substance abuse disorder (2) Schizophrenia, 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
--- NOTE | 2018-11-14 13:00 | Discharge Summary ---
Discharge Summary Discharge Summary _ DATE OF ADMISSION: 11/06/2018 DATE OF DISCHARGE: 11/13/2018 ADMITTING MD: Dr. Neel Rjoas CONSULTANTS: Dr. Martin Dinh [facility] COURSE: Patient is a 43-year-old female, who presented with chief complaint of altered mental status. Patient was nonverbal. History was obtained from patient's chart. [facility]. Apparently patient was trying to leave without being. She was taken outside and police department arrived. The patient became unresponsive. The patient will close her eyes when asked questions. The patient was transported to [facility] for further evaluation. Upon evaluation at the ED, vital signs were stable. Patient was afebrile. Blood work did not show any leukocytosis. Hemoglobin and hematocrit were stable. CKD was normal. Urine toxicology screen was positive for amphetamine and THC. Had CT did not show any evidence of acute intracranial hemorrhage, mass-effect or infarct. Patient was unable to be discharged. She collapsed twice attempts to discharge. Patient was not eating and not speaking. IV hydration was started. She was then admitted for psychiatric evaluation and licensed master social worker consult. Psychiatrist was consulted. Patient has not spoken to anyone since admission. She had flat affect and was not cooperative. She was diagnosed with substance abuse disorder and psychotic disorder. Patient has catatonia. Neurologist was consulted. Patient was localizing to pain. Patient did not participate in examination, but able to follow commands if thinking. Patient apparently ambulates independently to the bathroom per staff. There was no indication for an MRI. Schizophrenia lack of response appeared to be volitional as reflexes were intact and she was able to localize noxious stimuli and ambulate without the assistance. She was refusing meds. She was tolerating diet. Patient was calmer and was able to state her name to staff. Patient was not suicidal or homicidal. Patient left AMA. FINAL DIAGNOSES: Altered mental status Substance abuse disorder Schizophrenia catatonic type Delirium Antisocial behavior DISPOSITION: Patient left against medical advise. I have been assigned to complete a discharge summary on this account, I was not involved with the patient's management. Tabitha Yusuf NP Nov 14, 2018 13:00
== END 2018-11-13 10:15 | disposition left against medical advice (07) | DRG 885 ==
LOC: EDBD 18:47 → EMR 19:00 → EDBD 11-06 15:38 → 3E 11-06 15:38 → MERGE 11-06 15:38 → EDBEDREQ 11-06 17:14 → 3E 11-07 02:38
DX: F20.2 Catatonic schizophrenia (principal); F19.10 Other psychoactive substance abuse, uncomplicated; Z72.811 Adult antisocial behavior; R41.0 Disorientation, unspecified
CPT/HCPCS: 36415; 70450; 80048; 80053; 80307; 80329; 82550; 84443; 85025; 96372; 99284; J2310; J8499

== ENCOUNTER 2018-11-22 09:46 | Emergency (ER) | payer SELFPAY ==
[2018-11-22] VITALS (10 sets, daily range): BP systolic 104–114; BP diastolic 64–74
[~2018-11-22] VITALS: Ht 167.6 cm; Wt 72.6 kg
[~2018-11-22 09:46] MED LIST changes: +UNOBMED
--- NOTE | 2018-11-22 09:46 | NUR ---
ED Nurse Note: pt was brought in by ambulance due to posible alcohol intoxication, pt is sleeping at the time of arrival, pt is breathing equally and not in acute distress. pt is untidy. no complaint at the moment. per ems, bystander called because pt is screaming in the pedestrians. will continue to monitor
--- NOTE | 2018-11-22 10:30 | NUR ---
ED Nurse Note: pt belonging on locker #2
--- NOTE | 2018-11-22 12:00 | NUR ---
ED Nurse Note: pt woke up and started to shout names, pt is restless. seen by ermd. with new orders and caried out. pt medicated and able to tolarate. will continue to monitor.
[2018-11-22] MEDS ORDERED: Haloperidol 5mg/ml Inj IM ONE (12:15)
--- NOTE | 2018-11-22 12:15 | NUR ---
ED Nurse Note: bunghole borer called the attention of the rn, rn went to the room and pt was seen on knealing position towards the garbage can, noticed pt was bleeding on the forehead, pressure applied. pt denies pain. pt denies loc, neurocheck done. charge nurse made aware, ermd made aware. sitter stayed on bedside. vital signs within normal limit. will continue to monitor.
[2018-11-22 12:31] LABS: APPEARANCE,URINE CLEAR; BILIRUBIN, URINE NEGATIVE (NEGATIVE); COLOR,URINE PALE YELLOW; GLUCOSE, URINE (UA) NEGATIVE (NEGATIVE); KETONES,URINE 2+ (NEGATIVE); LEUKOCYTE ESTERASE ,URINE 3+ (NEGATIVE); NITRITE,URINE NEGATIVE (NEGATIVE); PH,URINE 5 (4.5-8.0); PROTEIN,URINE NEGATIVE (NEGATIVE); UROBILINOGEN,URINE NORMAL MG/DL (0.0-1.0)
--- NOTE | 2018-11-22 12:40 | NUR ---
ED Nurse Note: ermd on bedside doing a procedure to the pt. dermabond applied, pt toleratedd well. pt is calm and cooperative. will continue to monitor.
[2018-11-22] MEDS ORDERED: LORazepam Inj 2mg/ml 1ml IM ONE (13:00)
[2018-11-22] MEDS ORDERED: DiphenhydrAMINE 50mg/ml Inj IM ONE (13:00)
--- NOTE | 2018-11-22 14:06 | Emergency Room Report ---
History of Present Illness General Chief Complaint: Alcohol Intoxication Source: Patient, EMS (Ashley Bobo DO) Present Illness HPI Paramedics report that the patient was brought in after being found outside a restaurant Patient was not being responsive with them And was brought in there was a note regarding possible alcohol ingestion however the patient denies that Upon arrival the patient was fairly somnolent Throughout her stay she became more awake and alert, verbally abusive to the staff Denies any headache denies any chest pain (Ashley Bobo DO) Allergies: Coded Allergies: CODEINE (Unverified Allergy, Severe, Hives, 06/20/14) TRAMADOL (Verified Allergy, Unknown, 12/07/17) IBUPROFEN (Unverified Adverse Reaction, Intermediate, Anaphylaxis, ) Patient History Limited by: medical condition Past Medical History: see triage record Pertinent Family History: unable to obtain Last Menstrual Period: Unknown Now: No - Unknown Reviewed Nursing Documentation: PMH: Agreed; PSxH: Agreed (Ashley Bobo DO) Nursing Documentation-PMH History Of Psychiatric Problem: Yes - Anxiety (Ashley Bobo DO) Review of Systems All Other Systems: limited - Other than the ones mentioned in the history of present illness all others are reviewed however they do stay limited due to the patient's mental status (Ashley Bobo DO) Physical Exam Vital Signs Date Time Temp Pulse Resp B/P (MAP) Pulse Ox O2 Delivery O2 Flow Rate FiO2 11/22/18 09:39 98.2 104 18 93 Room Air 11/22/18 09:50 108/71 Sp02 EP Interpretation: reviewed, normal General Appearance: no apparent distress Head: normocephalic, atraumatic Eyes: bilateral eye PERRL ENT: normal pharynx Neck: supple, no meningismus Respiratory: lungs clear, no respiratory distress, no retraction Cardiovascular #1: regular rate, rhythm Gastrointestinal: non tender, soft Musculoskeletal: normal inspection Neurologic: alert Psychiatric: other - Agitated Skin: no rash, other - Disheveled appearance Lymphatic: no adenopathy (Ashley Bobo DO) Procedures Laceration/Wound Repair Laceration/Wound Repair : Consent: Emergent Wound Location: face Wound's Depth, Shape: superficial Wound Length (cm): 1 Wound Explored: clean Irrigated w/ Saline (ccs): 250 Betadine Prep?: Yes Wound Debrided: minimal Wound Repaired With: Dermabond Splint Applied?: No Patient Tolerated: Well Complications: None (Ashley Bobo DO) Medical Decision Making Diagnostic Impression: Primary Impression: psychotic disorder Nos Additional Impressions: Substance abuse Schizophrenia Qualified Codes: F20.9 - Schizophrenia, unspecified Head injury Qualified Codes: S09.90XA - Unspecified injury of head, initial encounter Forehead laceration Qualified Codes: S01.81XA - Laceration without foreign body of other part of head, initial encounter UTI (urinary tract infection) Qualified Codes: N30.00 - Acute cystitis without hematuria Renal insufficiency ER Course Initially the patient was allowed to rest, and was allowed to become more oriented for potential outpatient disposition, patient was here for extended period of time recently with multiple inpatient examinations and psychiatric evaluations Upon awaking however the patient is extremely agitated yelling and screaming Patient sustained a fall and has a laceration to the mid forehead It appears that the patient is not able to handle herself as an outpatient process appropriately Therefore further medication was required and initiation of further medical clearance for further psychiatric evaluation (Ashley Bobo DO) ER Course Please see above note. Patient CT negative. Patient sleeping with intermittent waking and screaming. Consider repeat Haldol as needed. Labs with min leukocytosis, min hypokalemia, elevated creatinine, pyuria. Rocephin ordered. Medically stable for psychiatric evaluation. Signed out to Dr. Zambrano. Laboratory Tests Test 11/22/18 12:23 11/22/18 14:50 Urine Color Pale yellow Urine Appearance Clear Urine pH 5 (4.5-8.0) Urine Specific [place] 1.025 (1.005-1.035) Urine Protein Negative (NEGATIVE) Urine Glucose (UA) Negative (NEGATIVE) Urine Ketones 2+ (NEGATIVE) H Urine Blood 3+ (NEGATIVE) H Urine Nitrite Negative (NEGATIVE) Urine Bilirubin Negative (NEGATIVE) Urine Urobilinogen Normal MG/DL (0.0-1.0) Urine Leukocyte Esterase 3+ (NEGATIVE) H Urine RBC 2-4 /HPF (0 - 2) H Urine WBC 5-10 /HPF (0 - 2) H Urine Squamous Epithelial Cells Few /LPF (NONE/OCC) Urine Amorphous Sediment Few /LPF (NONE) H Urine Bacteria Few /HPF (NONE) Urine Opiates Screen Negative (NEGATIVE) Urine Barbiturates Screen Negative (NEGATIVE) Phencyclidine (PCP) Screen Negative (NEGATIVE) Urine Amphetamines Screen Positive (NEGATIVE) H Urine Benzodiazepines Screen Negative (NEGATIVE) Urine Cocaine Screen Negative (NEGATIVE) Urine Marijuana (THC) Screen Positive (NEGATIVE) H White Blood Count 11.8 K/UL (4.8-10.8) H Red Blood Count 4.08 M/UL (4.20-5.40) L Hemoglobin 11.6 G/DL (12.0-16.0) L Hematocrit 35.3 % (37.0-47.0) L Mean Corpuscular Volume 87 FL (80-99) Mean Corpuscular Hemoglobin 28.4 PG (27.0-31.0) Mean Corpuscular Hemoglobin Concent 32.8 G/DL (32.0-36.0) Red Cell Distribution Width 14.1 % (11.6-14.8) Platelet Count 344 K/UL (150-450) Mean Platelet Volume 7.3 FL (6.5-10.1) Neutrophils (%) (Auto) 71.5 % (45.0-75.0) Lymphocytes (%) (Auto) 19.2 % (20.0-45.0) L Monocytes (%) (Auto) 8.5 % (1.0-10.0) Eosinophils (%) (Auto) 0.4 % (0.0-3.0) Basophils (%) (Auto) 0.5 % (0.0-2.0) Sodium Level 141 MMOL/L (136-145) Potassium Level 3.2 MMOL/L (3.5-5.1) L Chloride Level 105 MMOL/L (98-107) Carbon Dioxide Level 27 MMOL/L (21-32) Anion Gap 9 mmol/L (5-15) Blood Urea Nitrogen 12 mg/dL (7-18) Creatinine 1.6 MG/DL (0.55-1.30) H Estimate Glomerular Filtration Rate 35.0 mL/min (>60) Glucose Level 102 MG/DL (74-106) Calcium Level 8.1 MG/DL (8.5-10.1) L Total Bilirubin 0.2 MG/DL (0.2-1.0) Aspartate Amino Transferase (AST) 31 U/L (15-37) Alanine Aminotransferase (ALT) 25 U/L (12-78) Alkaline Phosphatase 66 U/L (46-116) Total Protein 6.7 G/DL (6.4-8.2) Albumin 3.2 G/DL (3.4-5.0) L Globulin 3.5 g/dL Albumin/Globulin Ratio 0.9 (1.0-2.7) L Salicylates Level 2.2 ug/mL (2.8-20) L Acetaminophen Level < 2 MCG/ML (10-30) L Serum Alcohol < 3 mg/dL (Anselmo Kelly MD) CT/MRI/US Diagnostic Results CT/MRI/US Diagnostic Results : Imaging Test Ordered: head Impression no intracranial pathology (Anselmo eKlly MD) Last Vital Signs Date Time Temp Pulse Resp B/P (MAP) Pulse Ox O2 Delivery O2 Flow Rate FiO2 11/22/18 09:50 98.2 100 18 108/71 93 Room Air Status: improved (Ashley Bobo DO) Last Vital Signs Date Time Temp Pulse Resp B/P (MAP) Pulse Ox O2 Delivery O2 Flow Rate FiO2 11/22/18 20:30 88 16 108/64 96 Room Air 11/22/18 15:45 97.4 Status: improved (Anselmo Kelly MD) Disposition: XFER TO PSYCH HOSP/UNIT Condition: Stable Departure Forms: Half-Way Clearance Patient Instructions: Alcohol Abuse and Nutrition Additional Instructions: ffollow-up gilbert Ren as needed Ashley Bobo DO November 22, 2018 14:06 Anselmo Kelly MD November 22, 2018 16:12
[2018-11-22 14:59] LABS: BASOPHILS % (AUTO) 0.5 % (0.0-2.0); EOSINOPHILS % (AUTO) 0.4 % (0.0-3.0); HEMATOCRIT 35.3 % (37.0-47.0); HEMOGLOBIN 11.6 G/DL (12.0-16.0); LYMPHOCYTES % (AUTO) 19.2 % (20.0-45.0); MEAN CORPUSCULAR VOLUME 87 FL (80-99); MONOCYTES % (AUTO) 8.5 % (1.0-10.0); NEUTROPHILS % (AUTO) 71.5 % (45.0-75.0); PLATELET COUNT 344 K/UL (150-450); RED BLOOD COUNT 4.08 M/UL (4.20-5.40); RED CELL DISTRIBUTION WIDTH 14.1 % (11.6-14.8); WHITE BLOOD COUNT 11.8 K/UL (4.8-10.8)
[2018-11-22 15:12] LABS: ANION GAP 9 mmol/L (5-15); BLOOD UREA NITROGEN 12 mg/dL (7-18); CALCIUM 8.1 MG/DL (8.5-10.1); CARBON DIOXIDE 27 MMOL/L (21-32); CHLORIDE 105 MMOL/L (98-107); CREATININE 1.6 MG/DL (0.55-1.30); POTASSIUM 3.2 MMOL/L (3.5-5.1); SODIUM 141 MMOL/L (136-145)
[2018-11-22 15:19] LABS: ALANINE AMINOTRANSFERASE 25 U/L (12-78); ALBUMIN 3.2 G/DL (3.4-5.0); ALBUMIN/GLOBULIN RATIO 0.9 (1.0-2.7); ALKALINE PHOSPHATASE 66 U/L (46-116); ASPARTATE AMINO TRANSFERASE 31 U/L (15-37); BILIRUBIN,TOTAL 0.2 MG/DL (0.2-1.0)
--- NOTE | 2018-11-22 15:30 | NUR ---
ED Nurse Note: pt went to ct with tech. pt is cooperative and calm
--- NOTE | 2018-11-22 15:31 | Diagnostic Imaging Report ---
EXAM: CT Head Without Intravenous Contrast CLINICAL HISTORY: TRAUMA TECHNIQUE: Axial computed tomography images of the head/brain without intravenous contrast. CTDI is 70.38 mGy and DLP is 1354 mGy-cm. One or more of the following dose reduction techniques were used: automated exposure control, adjustment of the mA and/or kV according to patient size, use of iterative reconstruction technique. COMPARISON: No relevant prior studies available. FINDINGS: Brain: No hemorrhage. No edema. Ventricles: No ventriculomegaly. Bones/joints: No acute fracture. Soft tissues: Unremarkable. Sinuses: No acute sinusitis. Mastoid air cells: No mastoid effusion. IMPRESSION: No acute intracranial process.
--- NOTE | 2018-11-22 15:40 | NUR ---
ED Nurse Note: pt went back from ct with inocencio and sitter.
--- NOTE | 2018-11-22 18:50 | NUR ---
ED Nurse Note: Pt awaken nad asked for food and provided and pt able to tolerate well.
--- NOTE | 2018-11-22 20:37 | NUR ---
ED Nurse Note: pt is asleep, respiration equal and unlabored. no complains at the moment. will continue to monitor.
--- NOTE | 2018-11-22 21:00 | NUR ---
ED Nurse Note: received report from RN Cait, pt currently sleeing at this time, arousable to light shake, vss, resp even and unlabored on RA, no sx distress, will cont monitor. pt denies si/hi/vh/ah
[2018-11-23] VITALS (7 sets, daily range): BP systolic 106–135; BP diastolic 66–84
[2018-11-23] MEDS ORDERED: cefTRIAXone 1 GM in NS 55 ML IVPB ONE (00:45)
--- NOTE | 2018-11-23 01:00 | NUR ---
ED Nurse Note: pt given juice per req, airway intact.
--- NOTE | 2018-11-23 05:17 | NUR ---
ED Nurse Note: report given to MARJ NAIR and endorsed care.
--- NOTE | 2018-11-23 05:20 | NUR ---
ED Nurse Note: RECEIVED PATIENT FROM MARJ MANRIQUEZ. PATIENT SLEEPING COMFORTABLY IN BED WITH NO ACUTE DISTRESS. OFFERED FOOD, DRINK AND TOILETTING; PATIENT REFUSED.
--- NOTE | 2018-11-23 07:15 | NUR ---
ED Nurse Note: Received report from Davy Lance RN, pt is sleeping on bed with no distress. Breakfast tray at the bed side untouched.
--- NOTE | 2018-11-23 08:10 | NUR ---
ED Nurse Note: Pt walked into the restroom and back to her room with steady gait and with non skid socks on. Offered breakfast food to pt. IV Fluids ongoing per MD order.
--- NOTE | 2018-11-23 11:15 | NUR ---
ED Nurse Note: Anselmo Lara PRMT at the bed side for evaluation.
--- NOTE | 2018-11-23 11:43 | NUR ---
ED Nurse Note: Lunch tray provided to patient. No distress.
--- NOTE | 2018-11-23 14:05 | NUR ---
ED Nurse Note: pt c/o nerve pain and anxiety, req valium, ERMD notified.
[2018-11-23] MEDS ORDERED: LORazepam 1mg tab ORAL ONE (14:15)
--- NOTE | 2018-11-23 15:10 | NUR ---
ED Nurse Note: Unable to give report to Dewayne BLACK. Left a message via Voicemail. ER Charge nurse and [facility] ambulance personnel notified.
--- NOTE | 2018-11-23 15:30 | NUR ---
ED Nurse Note: Pt left with [facility] staff via ambulance. Belongings sent with pt.
--- NOTE | 2018-11-23 16:27 | NUR ---
ED Nurse Note: Report given to Chau MCMAHAN.
== END 2018-11-23 15:30 ==
LOC: EDBD 09:46 → EMR 09:55
DX: F23 Brief psychotic disorder (principal); F19.10 Other psychoactive substance abuse, uncomplicated; F20.9 Schizophrenia, unspecified; S09.90XA Unspecified injury of head, initial encounter; S01.81XA Laceration without foreign body of other part of head, initial encounter; N30.00 Acute cystitis without hematuria; N28.9 Disorder of kidney and ureter, unspecified; Z88.6 Allergy status to analgesic agent; F41.9 Anxiety disorder, unspecified; X58.XXXA Exposure to other specified factors, initial encounter; Y92.9 Unspecified place or not applicable
CPT/HCPCS: 12011; 36415; 70450; 80053; 80307; 81003; 85025; 96365; 96372; 99284; G0480; J0696; J1200; J1630; 80329; J8499

== ENCOUNTER 2019-07-27 14:57 | Emergency (ER) | payer MEDICAID, OTHER ==
[~2019-07-27] VITALS: Ht 154.9 cm; Wt 68.0 kg
--- NOTE | 2019-07-27 15:50 | NUR ---
ED Nurse Note:pt. was ADOLFO from the street with c/o generalized pain
--- NOTE | 2019-07-27 16:22 | Emergency Room Report ---
History of Present Illness General Chief Complaint: Lower Extremity Injury Source: Patient Present Illness HPI 44-year-old female presents to the emergency department complaining of 10 out of 10 in severity acute onset of anterior left knee pain while walking. Patient denies trauma or fall she states pain is exacerbated upon standing, ambulation, palpation or bending of the left knee. Patient denies erythema, warmth or swelling. Patient reports that she smokes daily she denies illicit drug use she denies history of IV drug use or STDs. Denies paresthesias. No other aggravating or relieving factors. Allergies: Coded Allergies: CODEINE (Unverified Allergy, Severe, Hives, 06/20/14) TRAMADOL (Verified Allergy, Unknown, 12/07/17) IBUPROFEN (Unverified Adverse Reaction, Intermediate, Anaphylaxis, ) Patient History Past Medical History: see triage record Past Surgical History: none Pertinent Family History: none Now: No Immunizations: UTD Reviewed Nursing Documentation: PMH: Agreed; PSxH: Agreed Nursing Documentation-PMH Past Medical History: No History, Except For Review of Systems All Other Systems: negative except mentioned in HPI Physical Exam Vital Signs Date Time Temp Pulse Resp B/P (MAP) Pulse Ox O2 Delivery O2 Flow Rate FiO2 07/27/19 14:53 97.9 110 16 90/60 (70) 100 Room Air Sp02 EP Interpretation: reviewed, normal General Appearance: no apparent distress, alert, GCS 15, non-toxic Head: normocephalic, atraumatic Eyes: bilateral eye normal inspection, bilateral eye PERRL ENT: hearing grossly normal, normal voice Neck: full range of motion Respiratory: lungs clear, normal breath sounds, speaking full sentences Cardiovascular #1: regular rate, rhythm, normal capillary refill Cardiovascular #2: 2+ dorsalis pedis (R), 2+ dorsalis pedis (L) Musculoskeletal: gait/station normal - PT. noted to walk to the telephone and out of the ED with a normal gait with out assistance. she Declined crutches and immobilizer. , tender - TTP anterior left knee. Pt. unable to tolerate ligamental laxity testing. , other - Exam is significantly limited by patient due to pain that is out of proportion to exam. Neurologic: alert, motor strength/tone normal, oriented x3, sensory intact, responsive, speech normal Psychiatric: judgement/insight normal Lymphatic: no adenopathy Medical Decision Making PA Attestation Dr. Zambrano Is my supervising Physician whom patient management has been discussed with. Diagnostic Impression: Primary Impression: Patellar tendon strain Qualified Codes: S86.812A - Strain of other muscle(s) and tendon(s) at lower leg level, left leg, initial encounter ER Course 36-year-old female presents to the emergency department complaining of 4 out of 10 severity pain/discomfort and mild swelling to the left tonsil area and underneath the left side of her tongue x1 week. Patient reports that she noticed that she had some white pus material in her right tonsil few days ago that she was able to express. Patient denies fevers or chills she denies neck pain she denies cough. Patient denies pain or difficulty swallowing. Patient denies past medical history and states she is not currently taking any medications. No other aggravating or relieving factors at this time. size does not change with eating. Ddx considered but are not limited to Fracture, dislocation, contusion, Sprain/ Strain/Spasm, septic joint, gout Vital signs: are WNL, pt. is afebrile H&PE are most consistent with musculoskeletal injury will perform imaging to r/ o fractures/dislocations. ORDERS: - X-ray Left Knee 3 views - negative for fx, Dislocation, or significant soft tissue injury, - high riding patella per preliminary read in ED, and signed by ANGELITA Simmons, my supervising physician has reviewed, and agrees with my interpretation. ED INTERVENTIONS: - Toradol IM --Knee immobilizer and crutches were ordered for this patient however she declined and ambulated out of the emergency department without assistance. DISCHARGE: At this time pt. is stable for d/c to home. Will provide printed patient care instructions, and any necessary prescriptions. Care plan and follow up instructions have been discussed with the patient prior to discharge. Other X-Ray Diagnostic Results Other X-Ray Diagnostic Results : X-Ray ordered: Left KNee # of Views/Limited Vs Complete: 3 View Indication: Pain EP Interpretation: Yes ANGELITA Xray: Interpretation reviewed, by supervising MD, and agrees with findings. Interpretation: no dislocation, no soft tissue swelling, no fractures, other - high riding patella Impression: Other - abnormal Electronically Signed by: Jonna Simmons PA-C Last Vital Signs Date Time Temp Pulse Resp B/P (MAP) Pulse Ox O2 Delivery O2 Flow Rate FiO2 07/27/19 14:53 97.9 110 16 90/60 (70) 100 Room Air Disposition: HOME, SELF-CARE Condition: Stable Scripts Acetaminophen* (TYLENOL EXTRA STRENGTH*) 500 Mg Tablet 500 MG ORAL Q8H, #30 TAB 0 Refills Prov: Jonna Simmons 07/27/19 Referrals: Orthopedic Urgent Care Patient Instructions: Patellar Tendinitis With [facility] Additional Instructions: Take medications as directed. Follow up with an EXCAVATOR BACKHOE OPERATOR in 3-5 days, even if your symptoms have resolved. If symptoms persist MRI may be required at the discretion of your PCP or Ortho Specialist. --Please review list of primary care clinics, if you do not already have a primary care provider who can give you an Orthopedic Referral. Return sooner to ED if new symptoms occur, or current symptoms become worse. - Please note that this Emergency Department Report was dictated using [employer] service agent technology software, occasionally this can lead to erroneous entry secondary to interpretation by the dictation equipment. Jonna Simmons Jul 27, 2019 16:22
[2019-07-27] MEDS ORDERED: Ketorolac 30mg Inj IM ONE (16:30)
[2019-07-27] MEDS ORDERED: TYLENOL EXTRA500 MG ORAL (16:49)
--- NOTE | 2019-07-27 17:00 | NUR ---
ER DISCHARGE NOTE: Patient is cleared to be discharged per ERMD, pt is aox4, on room air, with stable vital signs. pt was given dc and prescription instructions, pt was able to verbalize understanding, pt is able to ambulate with steady gait. pt took all belongings, bus card provided
--- NOTE | 2019-07-27 17:01 | NUR ---
ED Nurse Note:pt. refused knee immobilizer, ambulating with steady gait
[2019-07-27 17:02] VITALS: BP 102/61
--- NOTE | 2019-07-28 12:13 | Diagnostic Imaging Report ---
Indications: Reason For Exam: PAIN Technique: Three views of the left knee Comparison: None Findings: No acute fractures. No dislocations. Joint spaces are preserved. No radiopaque foreign body. Normal mineralization. Impression: No acute process
== END 2019-07-27 17:00 | disposition home or self-care (01) ==
LOC: EDBD 14:57 → EMR 16:40
DX: S86.812A Strain of other muscle(s) and tendon(s) at lower leg level, left leg, initial encounter (principal); F17.200 Nicotine dependence, unspecified, uncomplicated; Z88.6 Allergy status to analgesic agent; X58.XXXA Exposure to other specified factors, initial encounter; Y92.9 Unspecified place or not applicable
CPT/HCPCS: 73562; 96372; J1885; Z7502; 99283

== ENCOUNTER 2019-08-10 19:40 | Emergency (ER) | payer OTHER ==
[~2019-08-10] VITALS: Ht 157.5 cm; Wt 72.6 kg
--- NOTE | 2019-08-10 19:55 | NUR ---
ED Nurse Note: Patient was escorted to waiting room due to no bed availability at this time.
[2019-08-10 20:50] VITALS: BP 125/78
--- NOTE | 2019-08-10 20:52 | NUR ---
ED Nurse Note: pt called not in waiting room
--- NOTE | 2019-08-10 21:40 | Emergency Room Report ---
History of Present Illness General Chief Complaint: Altered Mental Status Source: Patient Present Illness HPI Patient left without being seen Allergies: Coded Allergies: CODEINE (Unverified Allergy, Severe, Hives, 06/20/14) TRAMADOL (Verified Allergy, Unknown, 12/07/17) IBUPROFEN (Unverified Adverse Reaction, Intermediate, Anaphylaxis, ) Patient History Now: No Nursing Documentation-[facility] Past Medical History: No History, Except For Physical Exam Vital Signs Date Time Temp Pulse Resp B/P (MAP) Pulse Ox O2 Delivery O2 Flow Rate FiO2 08/10/19 19:49 97.5 92 16 125/78 (94) 98 Room Air Medical Decision Making Last Vital Signs Date Time Temp Pulse Resp B/P (MAP) Pulse Ox O2 Delivery O2 Flow Rate FiO2 08/10/19 19:49 97.5 92 16 125/78 (94) 98 Room Air Disposition: LEFT W/OUT BEING SEEN Condition: Unknown Scripts Unable to Obtain Active Prescriptions or Reported Meds Ashley Bobo DO Aug 10, 2019 21:40
== END 2019-08-10 20:50 | disposition left against medical advice (07) ==
LOC: EDBD 19:40 → EMR 20:00
DX: Z53.21 Procedure and treatment not carried out due to patient leaving prior to being seen by health care provider (principal); Z88.6 Allergy status to analgesic agent

== ENCOUNTER → 2019-08-10 | Emergency (ER) | payer OTHER ==
[~2019-08-10] VITALS: Ht 162.6 cm; Wt 65.8 kg
[2019-08-10 14:16] VITALS: BP 123/76
--- NOTE | 2019-08-10 16:33 | NUR ---
GRAINING MACHINE OPERATOR CONSULT JOSHUA was informed by RN to meet w/ this pt. SW and pt met @ ER waiting room. Per pt, pt has been homeless for a few months after moving to [place] from [place]. PT currently does not receive any income. Per pt, she went to [facility] office 2 weeks ago and scheduled the appt. PT also states she made an appt at [facility], unknown location. However, pt was unable to recall the appt date/time. PT reports hx of Anxiety and currently does not receive outpatient MHS. Pt denies SI/HI. Pt reports abusing methamphetamine, last use a few days ago and THC every day. Pt denies ETOH or other substance abuse. Pt has hx of IP detox for 3 days in [place], [place]. Pt has a friend in [place] but pt declined to provide a contact information. Pt is wiling to go to homeless assisted. SW provide a winter assisted list, mental health resource, substance abuse rehab list, and [facility] location/contact information. JOSHUA also provided a bus map to [facility] [place] and one bus token so that she could go to a winter assisted upon DC. Pt did not request any further assistance. Pt was wearing weather-appropriate clothing. SW encouraged pt to F/U w/ [facility] appt and [facility]. Pt verbalized understanding. JOSHUA witnessed pt leaving the hospital w/ resources. Signed: 08/10/19 at 1642 by RIA LEWIS <Co-Signature Required>
--- NOTE | 2019-08-10 18:23 | Emergency Room Report ---
History of Present Illness General Chief Complaint: Behavioral Complaint Source: Patient Present Illness HPI Patient presents with reports of feeling anxious Patient reports that she would like to speak to a health and social care teacher as well denies any headache denies any chest pain patient had a palpitation sensation earlier which is started to improve Denies any focal weakness denies any vomiting or diarrhea Allergies: Coded Allergies: CODEINE (Unverified Allergy, Severe, Hives, 06/20/14) TRAMADOL (Verified Allergy, Unknown, 12/07/17) IBUPROFEN (Unverified Adverse Reaction, Intermediate, Anaphylaxis, ) Patient History Past Medical History: see triage record Last Menstrual Period: unk Now: No Reviewed Nursing Documentation: PMH: Agreed; PSxH: Agreed Nursing Documentation-PMH Past Medical History: No History, Except For Review of Systems All Other Systems: negative except mentioned in HPI Physical Exam Vital Signs Date Time Temp Pulse Resp B/P (MAP) Pulse Ox O2 Delivery O2 Flow Rate FiO2 08/10/19 14:16 97.7 101 18 123/76 (92) 95 Room Air Sp02 EP Interpretation: reviewed, normal General Appearance: well appearing, no apparent distress Head: normocephalic, atraumatic Eyes: bilateral eye PERRL ENT: other - Previous abrasions noted on the nasal area secondary healing Neck: supple Respiratory: lungs clear, no respiratory distress, no retraction Cardiovascular #1: regular rate, rhythm, no edema Gastrointestinal: non tender, soft Musculoskeletal: normal inspection Neurologic: alert, oriented x3 Psychiatric: normal inspection Skin: no rash Lymphatic: no adenopathy Medical Decision Making Diagnostic Impression: Primary Impression: Palpitations ER Course Multiple differentials and consideration including but not limited to cardiac, cardiopulmonary, metabolic process Patient has had fairly recent blood work and evaluation obtained here previously This was not repeated patient at this time asked to talk to social work I did Order social work consult initially patient apparently was not at her location and health and social care teacher returned and on the second visit was able to speak to the patient and at this time asking for a token And cleared for outpatient discharge Last Vital Signs Date Time Temp Pulse Resp B/P (MAP) Pulse Ox O2 Delivery O2 Flow Rate FiO2 08/10/19 14:16 97.7 101 18 123/76 (92) 95 Room Air Status: improved Disposition: HOME, SELF-CARE Condition: Improved [facility]errals: [facility]ERR[facility] (PCP) Additional Instructions: Patient is provided with the discharge instructions notified to follow up with primary doctor in the next 2-3 days otherwise return to the er with any worsening symptoms. Please note that this report is being documented using [employer] technology. This can lead to erroneous entry secondary to incorrect interpretation by the dictating instrument. Ashley Bobo DO Aug 10, 2019 18:23
== END | disposition home or self-care (01) ==
LOC: EMR 15:25
DX: R00.2 Palpitations (principal); F41.9 Anxiety disorder, unspecified; Z88.6 Allergy status to analgesic agent
CPT/HCPCS: 99283